=== PATIENT | male | born 1965 | race Caucasian/White ===

== ENCOUNTER → 2019-09-16 11:41 | Outpatient (CLI) | payer MEDICARE, SELFPAY ==
[2014-11-21 22:27] VITALS: BMI 24.4
--- NOTE | 2019-09-16 11:46 | RAD_ITS ---
STUDY: X-RAY CHEST REASON FOR EXAM: Male, 53 years old. SHORTNESS OF BREATH TECHNIQUE: Frontal and lateral views of the chest. COMPARISON: None. FINDINGS: The lungs are clear and expanded. There is no demonstrated pleural abnormality. Normal size heart. Normal mediastinum and con. Normal visualized pulmonary arteries. Normal visualized aortic arch and descending thoracic aorta. There are diffuse degenerative changes of the visualized thoracic spine. Partial compression fracture of T8. Normal visualized ribs, clavicles, and shoulders. There is no demonstrated abnormality of the visualized soft tissue structures of the upper abdomen. RAD/Chest PA and Lateral IMPRESSION: No acute chest disease. Electronically Signed: Everett De La Torre MD at 22:17 EST , Service support ,
== END ==
PROVIDERS: Referring Provider Nurse Practitioner; Visit Provider Nurse Practitioner
DX: R06.02 Shortness of breath (principal)
CPT/HCPCS: 71046

== ENCOUNTER → 2019-09-25 07:42 | Outpatient (CLI) | payer MEDICARE, SELFPAY ==
[2014-11-21 22:27] VITALS: BMI 24.4
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
--- NOTE | 2019-09-26 07:04 | PFT ---
INTRODUCTION: The patient is a 53-year-old male that presents for pulmonary function studies secondary to a diagnosis of shortness of breath. Bronchodilators were used during testing. INTERPRETATION: Forced expiration spirometry demonstrates the presence of a mild large airways obstructive ventilatory defect. There was no significant response to aerosolized bronchodilators, based upon strict ATS criteria. Spirograms are of good quality and do not plateau indicating slow emptying of the lungs. Body plethysmography was performed and reveals lung volumes to be within normal limits. Diffusing capacity by single breath CO is within normal limits at 92% of predicted. IMPRESSION: Irreversible mild large airways obstructive ventilatory defect with preserved lung volumes and diffusing capacity.
== END ==
PROVIDERS: PCP Nurse Practitioner; Referring Provider Nurse Practitioner; Visit Provider Nurse Practitioner
DX: S22.060A Wedge compression fracture of T7-T8 vertebra, initial encounter for closed fracture (principal); R06.02 Shortness of breath; R00.1 Bradycardia, unspecified
CPT/HCPCS: 77080; 93225; 93226; 94060; 94726; 94729

== ENCOUNTER → 2019-10-28 11:52 | Outpatient (CLI) | payer MEDICARE, SELFPAY ==
[2014-11-21 22:27] VITALS: BMI 24.4
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
== END ==
LOC: HPRAD 11:53
PROVIDERS: PCP Nurse Practitioner; Referring Provider Nurse Practitioner Family; Visit Provider Nurse Practitioner Family
DX: M46.96 Unspecified inflammatory spondylopathy, lumbar region (principal); M54.9 Dorsalgia, unspecified; M54.17 Radiculopathy, lumbosacral region
CPT/HCPCS: 72110

== ENCOUNTER → 2020-08-25 15:12 | Outpatient (CLI) | payer MEDICARE, SELFPAY ==
[2014-11-21 22:27] VITALS: BMI 24.4
--- NOTE | 2020-08-25 15:15 | RAD_ITS ---
STUDY: X-RAY - LEFT HAND REASON FOR EXAM: Male, 54 years old. left hand pain TECHNIQUE: 3 view(s) of the hand. COMPARISON: None. FINDINGS: He has an old mild dorsal impaction fracture deformity of the distal radius and a well corticated large ossicle at the tip of the ulnar styloid process. Degenerative arthrosis of the distal radioulnar joint. Normal visualized carpal bones. Normal carpal articulations There is degenerative arthrosis of the carpometacarpal (CMC) articulation of the thumb normal second through the fifth carpometacarpal joints Prior healed fracture of the distal fifth metacarpal resulting in mild shortening and dorsal bowing deformity. There is degenerative arthrosis of the metacarpophalangeal (MCP) joints. There is degenerative arthrosis of the interphalangeal joint of the thumb with articular joint space narrowing. Normal proximal and distal phalanges of the thumb. Minimal degenerative changes of the second through the fifth metacarpophalangeal joints. Mild degenerative narrowing of the interphalangeal joints. Normal phalanges of the second through fifth fingers. The soft tissue structures are unremarkable. RAD/Hand Min 3 Views IMPRESSION: Negative for acute fracture or dislocation. Old dorsal impaction fracture of the distal radius and an old fracture of the fifth metacarpal as described above. Degenerative arthrosis of the distal radioulnar joint. Mild degenerative arthrosis of the metacarpal phalangeal and interphalangeal joints diffusely. Electronically Signed: Fern Encinas MD at 10:33 EST , Service support ,
--- NOTE | 2020-08-25 15:15 | RAD_ITS ---
STUDY: X-RAY - LEFT SHOULDER REASON FOR EXAM: Male, 54 years old. left shoulder pain TECHNIQUE: 4 view(s) of the shoulder. COMPARISON: None. FINDINGS: There is moderate degenerative arthrosis of the glenohumeral articulation. Status post surgical removal of the distal clavicle bordering the AC joint. Normal acromion. Normal humeral head and visualized proximal humerus. The soft tissue structures are unremarkable. Negative for fracture. Normal visualized pulmonary apex. RAD/Shoulder min 2 Views IMPRESSION: Normally located glenohumeral joint with narrowing and marginal osteophytosis consistent with moderate degenerative arthrosis. Status post surgical removal of the distal clavicle bordering the AC joint. Negative for fracture, dislocation, osteolytic or blastic bone lesion. Electronically Signed: Fern Encinas MD at 10:29 EST , Service support ,
== END ==
PROVIDERS: PCP Nurse Practitioner; Referring Provider Nurse Practitioner; Visit Provider Nurse Practitioner
DX: M25.512 Pain in left shoulder (principal); M79.642 Pain in left hand
CPT/HCPCS: 73030; 73130

== ENCOUNTER → 2020-10-18 15:19 | Outpatient (CLI) | payer MEDICARE, SELFPAY ==
[2020-09-28 13:21] VITALS: BMI 32.5
--- NOTE | 2020-10-18 15:22 | RAD_ITS ---
STUDY: X-RAY - LUMBAR SPINE REASON FOR EXAM: Male, 54 years old. PAIN, OLD INJURIES, CONTINUED PAIN TECHNIQUE: 3 view(s) of the lumbar spine were obtained. COMPARISON: None FINDINGS: Normal lumbar lordosis. Mild levoscoliosis centered at L2/L3. 2 mm of retrolisthesis of L3 on L4. There is multilevel endplate spondylosis of the lumbar vertebrae. There is multi-level degenerative disc disease with multi-level disc space narrowing. The soft tissue structures are unremarkable. RAD/Lumbar Spine 2 or 3 Views IMPRESSION: Mild levoscoliosis with mild diffuse degenerative disc disease with 2 mm retrolisthesis of L3 on L4. Electronically Signed: Jaleel Yepez MD at 6:09 EST Tel , Service support ,
--- NOTE | 2020-10-18 15:22 | RAD_ITS ---
STUDY: X-RAY - SACRUM/COCCYX REASON FOR EXAM: Male, 54 years old. PAIN, OLD INJURIES, CONTINUED PAIN TECHNIQUE: 3 view(s) of the sacrum and coccyx were obtained. COMPARISON: None. FINDINGS: Normal bilateral sacroiliac joints. Normal visualized sacral ala and fused sacral bodies. Normal sacrococcygeal junction with a normal angulation. Normal coccygeal segments. There is a 1.7 cm x 1.4 cm rounded calcification in the central portion of the pelvis. This most likely represents a bladder calculus. Phleboliths are seen within the pelvis. RAD/Sacrum-Coccyx min 2 Views IMPRESSION: Findings suggestive of a bladder calculus. Electronically Signed: Moreno Lew MD at 8:25 EST , Service support ,
--- NOTE | 2020-10-18 15:22 | RAD_ITS ---
STUDY: X-RAY - PELVIS AND BILATERAL HIPS REASON FOR EXAM: Continued pelvic/hip pain, old injuries. TECHNIQUE: AP view of the pelvis.? 2 views of the right hip, and 2 views of the left hip were obtained. COMPARISON: None. FINDINGS: There is a calcification in the pelvis likely representing a urinary bladder calculus. Normal bilateral iliac wings, sacroiliac joints and visualized sacrum. Normal bilateral superior and inferior pubic rami. Normal pubic symphysis. Normal bilateral ischial tuberosities. There is moderate joint space narrowing of the right hip with subchondral cystic change of the right acetabulum and right femoral head. There is orthopedic hardware transfixing a healed left intertrochanteric fracture. Normal left acetabulum. There is mild joint space narrowing of the superior medial left hip joint. RAD/Hips B/L min 2 views w/ Pelvis IMPRESSION: Right hip arthrosis. Mild left hip arthrosis. Orthopedic hardware transfixing a healed left intertrochanteric fracture. Electronically Signed: Saúl Cleveland MD at 10:40 EST Tel , Service support ,
== END ==
LOC: RAD 15:21
PROVIDERS: PCP Nurse Practitioner; Referring Provider Anesthesiology Pain Medicine; Visit Provider Anesthesiology Pain Medicine
DX: M54.9 Dorsalgia, unspecified (principal)
CPT/HCPCS: 72100; 72220; 73521

== ENCOUNTER 2022-04-07 15:21 | Emergency (ER) | payer MEDICARE, SELFPAY ==
[2022-04-07 15:24] VITALS: BP 170/108; PULSE 80; RESP 18; TEMP 36.8; O2SAT 96; BMI 30.5
--- NOTE | 2022-04-07 16:11 | CT_ITS ---
STUDY: CT Abdomen And Pelvis W/O Contrast Injection 04/07/2022 4:56 PM REASON FOR EXAM: Male, 56 years old. Technologist Notes Pt reports he went to urgent care who sent him to ED this morning due inability to urinate over night, frequency this AM and bloody urine. Also reports RLQ abdominal pain. ABDOMINAL PAIN Kidney Stone hematuria TECHNIQUE: Transaxial images were obtained without oral contrast, and without intravenous contrast. Individualized dose optimization techniques were used for this CT. COMPARISON: None. FINDINGS: The visualized lung bases are unremarkable. The visualized portions of the heart are within normal limits. Unremarkable liver. Unremarkable gallbladder and extrahepatic biliary system. Unremarkable spleen. There is diffuse atrophy of the pancreas. Unremarkable bilateral adrenal glands. Non obstructive 2 mm right renal parenchymal stones. Non obstructive 2 mm left renal parenchymal stones. There are hypodensities in the right kidney. These are consistent for cysts. No follow up required. Unremarkable visualized stomach. Unremarkable small intestine. There are multiple colonic diverticula consistent with diverticulosis. There is non-visualization of the appendix. There are calcifications of the abdominal aorta. This is consistent for atherosclerotic disease. There is no abdominal aortic aneurysm. Unremarkable inferior vena cava. Subcentimeter mesenteric lymph nodes. Urinary bladder wall has wall thickening. This can be related to a partially contractile state. However, a cystitis is not excluded. Urinalysis should be performed in an effort to exclude cystitis. L4 vertebral body hemangioma. There is an umbilical hernia containing fat. There are diffuse degenerative changes of the visualized lumbar spine. There is metallic hardware noted in the left hip. CT/Abdomen/Pelvis without Cont IMPRESSION: (NOT LISTED IN ORDER OF SIGNIFICANCE) Urinary bladder wall has wall thickening. This can be related to a partially contractile state. However, a cystitis is not excluded. Urinalysis should be performed in an effort to exclude cystitis. s There are multiple colonic diverticula consistent with diverticulosis. Other findings as above. Electronically Signed: Robby Nicole MD at 17:16 EDT ,
--- NOTE | 2022-04-07 16:12 | EX.ED.DYSGE1 ---
HPI History of Present Illness Chief Complaint: Complaint Informant: patient Narrative Narrative: -year-old male history of chronic pain presenting to the emergency room with hematuria and abdominal/flank pain. Patient states upon waking this morning he was only able to void a small amount of urine and noticed that it was bloody and brown. He drank a lot of water and eventually his urine cleared. He went to urgent care and was advised to come to emergency. He denies any known renal issues or history of kidney stones. Former smoker. He is not on any blood thinners and denies any known trauma. [facility] Medical History (Updated 04/07/22 @ 17:[address] Douglas Presley DO) Arthritis Shoulder pain SOB (shortness of breath) Home Medications cyclobenzaprine 5 mg tablet 1 ea PO TID 09/28/20 [History Last Taken Unknown] gabapentin 600 mg tablet 1,200 mg PO BID 09/28/20 [History Last Taken Unknown] methylphenidate HCl 20 mg tablet 20 mg PO BID 09/28/20 [History Last Taken Unknown] sulfamethoxazole 800 mg-trimethoprim 160 mg tablet 1 tab PO BID #14 TABLETS 04/07/22 [Rx Last Taken Unknown] Allergy/AdvReac Type Severity Reaction Status Date / Time No Known Allergies Allergy Verified 04/07/22 15:24 Family History Other Cancer Surgical History (Updated 04/07/22 @ 16:37 by Romina Carroll) H/O shoulder surgery Hx of bilateral hip replacements Social History (Updated 04/07/22 @ 16:[address] Douglas Presley DO) Smoking Status: Current every day smoker tobacco type: cigarettes substance use type: marijuana ROS ROS ED Constitutional Constitutional ED: Denies chills or weight loss Eyes Eyes: Denies change in vision or diplopia ENT ENT ED: Denies ear pain, rhinorrhea or sore throat Cardiovascular Cardiovascular: Denies chest pain, orthopnea, palpitations or racing heartbeat Respiratory/Chest Respiratory/Chest: Denies cough, dyspnea or orthopnea Gastrointestinal Gastrointestinal: Reports abdominal pain; Denies diarrhea, nausea or vomiting Genitourinary Genitourinary ED: Reports dysuria, hematuria and urinary frequency Musculoskeletal Musculoskeletal: Reports back pain; Denies arthralgias or myalgias Integumentary Denies abscess or rash Neurologic Neurologic: Denies headache(s) or weakness Psychiatric Psychiatric: Denies anxiety, depression, suicidal ideation or suicidal thoughts Endocrine Endocrinology: Denies polydipsia, polyphagia or polyuria Allergic/Immunologic Allergic/Immunologic ED: Denies mouth swelling, tongue swelling or urticaria EXAM Physical Exam Const Vital Signs: 04/07/22 15:24 Temperature 98.2 F Temperature Source Temporal Pulse Rate 80 Respiratory Rate 18 Blood Pressure 170/108 H Blood Pressure Mean 128 Pulse Ox 96 Oxygen Delivery Method Room Air Positive well nourished and well developed General Appearance ED: well developed HEENT Reports normocephalic, head/scalp atraumatic and moist mucous membranes Eyes PERRL and EOMs intact bilaterally Neck no lymphadenopathy, supple and no JVD Resp normal respiratory effort and clear to auscultation bilaterally Cardio regular rate, regular rhythm and no murmurs GI GI Narrative: Diffuse abdominal tenderness to palpation. Auscultation: normoactive bowel sounds Palpation: soft Back/Spine normal ROM General Back: CVA tenderness right Extremity normal to inspection General Extremety ED: Negative for edema General Extremity: Negative for edema Neuro oriented x3 and CN's II-XII intact bilaterally Sensorium / Orientation: alert Motor Exam: strength 5/5 throughout Psych mental status grossly normal Mood & Affect: Negative for depressed or tearful Skin no rashes or lesions noted and no wounds MDM MDM MDM Narrative Medical decision making narrative: White count is elevated 13.6 hemoglobin 12.4. Platelet count normal at 214. Creatinine normal 0.99. Urinalysis 1+ bacteria 50-100 white cells 5-10 red blood cells positive leukocyte Estrace. This will be sent for culture. Patient will be started on Bactrim. Encouraged to continue to drink fluids. I asked him to follow-up with urology. Lab Data Attestation: I reviewed the patient's lab results. Labs: Laboratory Results - last 24 hr 04/07/22 04/07/22 04/07/22 15:00 16:20 16:20 WBC 13.6 H RBC 3.90 L Hgb 12.4 L Hct 35.5 L MCV 91.0 MCH 31.8 MCHC 34.9 RDW Std Deviation 41.9 RDW Coeff of Erik 12.8 Plt Count 214 MPV 9.4 Immature Gran % (Auto) 0.300 Neut % (Auto) 83.4 H Lymph % (Auto) 8.0 L Petroleum % (Auto) 7.2 Eos % (Auto) 0.7 Baso % (Auto) 0.4 Absolute Neuts (auto) 11.3 H Absolute Lymphs (auto) 1.08 Nucleated RBC % 0 Sodium 136 Potassium 3.9 Chloride 105 Carbon Dioxide 28.0 Anion Gap 3 L BUN 10 Creatinine 0.99 Estim Creat Clear Calc 86.62 Est GFR (MDRD) Af Amer 99 Est GFR (MDRD) Non-Af 82 BUN/Creatinine Ratio 10.1 Glucose 110 H Calcium 9.1 Total Bilirubin 1.60 H AST 16 ALT 27 Alkaline Phosphatase 82 Total Protein 7.0 Albumin 3.8 Globulin 3.2 Albumin/Globulin Ratio 1.2 Urine Color Straw Urine Clarity Sl. Cloudy Urine pH 7.0 Ur Specific [place] 1.005 Urine Protein 30 H Urine Glucose (UA) Normal Urine Ketones Negative Urine Occult Blood 250 H Urine Nitrite Negative Urine Bilirubin Negative Urine Urobilinogen Normal Ur Leukocyte Esterase 500 H Urine RBC 5-10 SEEN Urine WBC 50-100 SEEN Ur Squamous Epith Cells 0-5 SEEN Urine Bacteria 1+ Urine Mucus 0 SEEN Radiography Diagnostic Testing: Clinical Impression(s) from Imaging Studies Abdomen/Pelvis CT 04/07/22 16:11 IMPRESSION: (NOT LISTED IN ORDER OF SIGNIFICANCE) Urinary bladder wall has wall thickening. This can be related to a partially contractile state. However, a cystitis is not excluded. Urinalysis should be performed in an effort to exclude cystitis. s There are multiple colonic diverticula consistent with diverticulosis. Other findings as above. Electronically Signed: Robby Nicole MD at 17:16 EDT , Discharge Plan Triage Chief Complaint: Complaint ED Provider: Douglas Presley Dx/Rx/DC Orders Clinical Impression: Hematuria, Acute pyelonephritis Instructions: ED Pyelonephritis, Male (Adult) Prescriptions: New sulfamethoxazole-trimethoprim [sulfamethoxazole-trimethoprim] 800-160 mg tablet 1 tab PO BID Qty: 14 0RF No Action gabapentin 600 mg tablet 1,200 mg PO BID Label Comments: TAKE 1 TABLET BY MOUTH THREE TIMES DAILY cyclobenzaprine 5 mg tablet 1 ea PO TID Label Comments: TAKE 1 TO 2 TABLETS BY MOUTH EVERY 8 HOURS NEEDED for muscle relaxation. methylphenidate HCl 20 mg tablet 20 mg PO BID Label Comments: TAKE 1 TABLET BY MOUTH TWICE DAILY Primary Care Provider: Lori Paez Referrals: Calos Beauchamp MD [Med Staff - Active Staff] - 1-2 Weeks Lori Paez, [employer] OPERATOR-C [Primary Care Provider] - Disposition Disposition: Home, Self Care
[2022-04-07] MEDS: Ketorolac 30 MG/ML Syringe IV (16:29)
[2022-04-07] MEDS: Ondansetron 4 MG/2 ML Vial IV (16:29)
[2022-04-07 16:37] LABS: Absolute Lymphocyte Count 1.08 X10^3/uL (0.83-4.51); Absolute Neutrophil Count 11.3 X10^3/uL (2.0-7.7); Basophil# 0.06 X10^3/uL; Basophil% 0.4 % (0-1); Eosinophils% 0.7 % (0-5); Hematocrit 35.5 % (40-54); Hemoglobin 12.4 g/dL (13.0-16.5); Lymphocyte # 1.08 X10^3/ul (0.83-4.51); Mean Corp Hgb Conc 34.9 g/dL (32-36); Mean Corpuscular Hgb 31.8 pg (27.0-32.0); Mean Platelet Vol. 9.4 fl (6.2-12.0); Monocyte# 0.98 X10^3/uL; Monocyte% 7.2 % (0-10); NRBC Flagged by Analyzer 0 % (0-5); Neutrophil % 83.4 % (47-70); Platelet Count 214 K/mm3 (150-450); RBC Distribution Width CV 12.8 % (11.6-14.6); RBC Distribution Width SD 41.9 fl (35.1-43.9); White Blood Count 13.6 K/mm3 (4.4-11.0)
[2022-04-07 16:53] LABS: ALB/GLOB Ratio 1.2 RATIO (0.9-2.4); AST(SGOT) 16 U/L (15-37); Alanine Aminotransfer ALT/SGPT 27 U/L (16-61); Albumin, Serum 3.8 g/dL (3.2-5.0); Alkaline Phosphatase 82 U/L (45-117); Anion Gap 3 (5-15); BUN 10 mg/dL (7-18); BUN/Creat Ratio 10.1 RATIO (10-20); Calcium,Total 9.1 mg/dL (8.5-10.1); Chloride 105 mmol/L (98-107); Creatinine, Serum 0.99 mg/dL (0.70-1.30); EST Glomerular Filtration Rate 82 mL/min (>60); Est Glom Filt Rate - Afr Amer 99 mL/min (>60); Estimated Creatinine Clearance 86.62 ml/min; Globulin 3.2 g/dL (2.2-4.2); Glucose 110 mg/dL (74-106); Potassium 3.9 mmol/L (3.5-5.1); Sodium Level 136 mmol/L (136-145)
[2022-04-07 17:03] LABS: Mucous, Urine 0 SEEN /hpf (<or=2+)
[2022-04-07 17:26] LABS: Color, Urine Straw (Yellow); Glucose, Dipstick Normal (Normal); Ketone-Dipstick Negative (Negative); Leukocyte Esterase-Dipstick 500 /ul (Negative); Nitrite-Dipstick Negative (Negative); Occult Blood-Urine 250 /ul (Negative); Protein-Dipstick 30 mg/dl (Negative); Specific Gravity, Urine 1.005 (1.002-1.030); Urine Bilirubin Dipstick Negative (Negative); Urine Clarity Sl. Cloudy (Clear); Urine Urobilinogen Normal (Normal)
[2022-04-07 17:42] LABS: Red Blood Cells-Urine 5-10 SEEN /hpf (0-5); Squamous Epithelial Cells - UA 0-5 SEEN /hpf (0-5); White Blood Cells 50-100 SEEN /hpf (0-5)
[2022-04-07 17:43] LABS: Bacteria 1+ /hpf (None Seen)
== END 2022-04-07 18:05 | disposition home or self-care (01) ==
PROVIDERS: Emergency Provider Emergency Medicine; PCP Nurse Practitioner Family; Visit Provider Emergency Medicine
DX: N10 Acute pyelonephritis (principal); F31.60 Bipolar disorder, current episode mixed, unspecified; F17.210 Nicotine dependence, cigarettes, uncomplicated; R31.9 Hematuria, unspecified; N39.0 Urinary tract infection, site not specified; I10 Essential (primary) hypertension; E55.9 Vitamin D deficiency, unspecified; M62.838 Other muscle spasm
CPT/HCPCS: 36415; 74176; 80053; 80061; 81001; 82248; 82306; 83735; 84100; 84443; 84550; 85025; 85652; 86038; 86140; 86200; 86235; 86431; 87086; 87088; 87186; 96374; 96375; 99283; A4216; J2405

== ENCOUNTER → 2022-04-07 | Outpatient (CLI) | payer MEDICARE, SELFPAY ==
[2022-04-07 15:05] LABS: Erythrocyte Sedimentation Rate 14 mm/hr (0-20)
[2022-04-07 15:09] LABS: Absolute Lymphocyte Count 1.23 X10^3/uL (0.83-4.51); Absolute Neutrophil Count 10.1 X10^3/uL (2.0-7.7); Basophil# 0.05 X10^3/uL; Basophil% 0.4 % (0-1); Eosinophil# 0.09 X10^3/uL; Eosinophils% 0.7 % (0-5); Hematocrit 35.2 % (40-54); Lymphocyte # 1.23 X10^3/ul (0.83-4.51); Mean Corp Hgb Conc 34.1 g/dL (32-36); Mean Corpuscular Hgb 30.8 pg (27.0-32.0); Mean Corpuscular Volume 90.5 fL (80-94); Mean Platelet Vol. 10.1 fl (6.2-12.0); Monocyte# 0.78 X10^3/uL; Monocyte% 6.4 % (0-10); NRBC Flagged by Analyzer 0 % (0-5); Neutrophil # 10.06 X10^3/uL (2.7-7.7); Platelet Count 221 K/mm3 (150-450); RBC Distribution Width CV 12.8 % (11.6-14.6); RBC Distribution Width SD 41.7 fl (35.1-43.9); Red Blood Count 3.89 M/mm3 (4.6-6.2); White Blood Count 12.3 K/mm3 (4.4-11.0)
[2022-04-07 15:13] LABS: Mucous, Urine 0 SEEN /hpf (<or=2+)
[2022-04-07 15:21] LABS: Color, Urine Straw (Yellow); Glucose, Dipstick Normal (Normal); Ketone-Dipstick Negative (Negative); Leukocyte Esterase-Dipstick 500 /ul (Negative); Nitrite-Dipstick Negative (Negative); Occult Blood-Urine 250 /ul (Negative); Protein-Dipstick 30 mg/dl (Negative); Specific Gravity, Urine 1.005 (1.002-1.030); Urine Bilirubin Dipstick Negative (Negative); Urine Clarity Cloudy (Clear); Urine Urobilinogen Normal (Normal)
[2022-04-07 15:27] LABS: Vitamin D,25 Hydroxy 136.4 ng/mL
[2022-04-07 15:35] LABS: ALB/GLOB Ratio 1.2 RATIO (0.9-2.4); AST(SGOT) 15 U/L (15-37); Alanine Aminotransfer ALT/SGPT 27 U/L (16-61); Albumin, Serum 3.8 g/dL (3.2-5.0); Alkaline Phosphatase 80 U/L (45-117); Anion Gap 5 (5-15); BUN 11 mg/dL (7-18); BUN/Creat Ratio 11.6 RATIO (10-20); Bilirubin, Direct 0.32 mg/dL (0.00-0.30); Calcium,Total 8.8 mg/dL (8.5-10.1); Chloride 104 mmol/L (98-107); Cholesterol 144 mg/dL (200); Creatinine, Serum 0.95 mg/dL (0.70-1.30); EST Glomerular Filtration Rate 87 mL/min (>60); Est Glom Filt Rate - Afr Amer 105 mL/min (>60); Globulin 3.2 g/dL (2.2-4.2); Glucose 103 mg/dL (74-106); High Density Lipoprotein 45 mg/dL; Magnesium 1.9 mg/dL (1.6-2.6); Phosphorus 2.4 mg/dL (2.5-4.9); Potassium 3.6 mmol/L (3.5-5.1); Rheumatoid Factor < 10.0 IU/mL (<15); Sodium Level 135 mmol/L (136-145); Thyroid Stim Hormone (TSH) 0.29 uIU/mL (0.358-3.74); Triglycerides 75 mg/dL; Uric Acid 6.2 mg/dL (3.5-7.2); Very Low Density Lipoprotein 15 mg/dL (5-40)
[2022-04-07 16:20] LABS: Bacteria 2+ /hpf (None Seen); Red Blood Cells-Urine 10-25 SEEN /hpf (0-5); Squamous Epithelial Cells - UA 0-5 SEEN /hpf (0-5); White Blood Cells 50-100 SEEN /hpf (0-5)
[2022-04-10 15:08] LABS: RNP Ab <0.2 AI (0.0-0.9); Smith Ab <0.2 AI (0.0-0.9)
[2022-04-10 16:55] LABS: ANTINUCLEAR ANTIBODIES DIRECT Negative (Negative)
[2022-04-19 12:31] LABS: CCP IgG Antibodies 5 units (0-19)
== END | disposition home or self-care (01) ==
PROVIDERS: Nurse Practitioner Family; PCP Nurse Practitioner Family; Referring Provider Nurse Practitioner Family; Visit Provider Nurse Practitioner Family
DX: N39.0 Urinary tract infection, site not specified (principal); F31.60 Bipolar disorder, current episode mixed, unspecified; I10 Essential (primary) hypertension; E55.9 Vitamin D deficiency, unspecified; M62.838 Other muscle spasm
CPT/HCPCS: 36415; 80053; 80061; 81001; 82248; 82306; 83735; 84100; 84443; 84550; 85025; 85652; 86038; 86140; 86200; 86235; 86431; 87086; 87088; 87186

== ENCOUNTER 2022-04-10 11:07 | Inpatient (IN) | payer MEDICARE, SELFPAY ==
[2022-04-10] VITALS (14 sets, daily range): BP systolic 121–144; BP diastolic 67–94; PULSE 71–96; RESP 12–20; TEMP 36.2–39.2; O2SAT 90–97; BMI 29.9
--- NOTE | 2022-04-10 12:11 | EKG12_ITS ---
Test Reason : fall Blood Pressure : / mmHG Vent. Rate : 075 BPM Atrial Rate : 075 BPM P-R Int : 170 ms QRS Dur : 112 ms QT Int : 378 ms P-R-T Axes : 060 -25 046 degrees QTc Int : 422 ms Normal sinus rhythm Incomplete right bundle branch block Borderline ECG Confirmed by DENIZ LAM, AGUSTÍN ([id number]), social media editor NICO BROWN ([id number]) on 04/11/2022 9:27:49 AM Referred By: Confirmed By:AGUSTÍN GUAMAN MD
--- NOTE | 2022-04-10 12:11 | CT_ITS ---
STUDY: CT BRAIN WITHOUT CONTRAST REASON FOR EXAM: Male, 56 years old. Fall, head injury RADIATION DOSAGE (If Supplied By Facility): CTDIvol = ( 44.99 ) mGy, DLP = ( 897.35 ) mGycm TECHNIQUE: Transaxial CT imaging of the brain was performed without administration of intravenous contrast material. Individualized dose optimization techniques were used for this CT. COMPARISON: No relevant priors. FINDINGS: Normal soft tissue structures. Normal calvarium. Normal size ventricles and extra-axial spaces for the patient''s age. Normal white matter tracts of the cerebral hemispheres. Normal basal ganglia and thalami. Normal brainstem. Normal cerebellum. There is no intracranial hemorrhage. There are no findings of an acute ischemic infarction. Normal visualized paranasal sinuses. CT/Brain/Head without Contrast IMPRESSION: Normal unenhanced CT scan of the brain. Electronically Signed: Moreno Lew MD at 13:18 EDT ,
--- NOTE | 2022-04-10 12:11 | RAD_ITS ---
STUDY: X-RAY CHEST REASON FOR EXAM: Male, 56 years old. Fatigue, sweats TECHNIQUE: PA and lateral views of the chest. COMPARISON: Comparison is made with prior study dated 03/16/2020. FINDINGS: EKG electrodes are seen. There is hyperinflation of the lungs consistent with chronic obstructive lung disease (COPD). There is no demonstrated pleural abnormality. Normal size heart. Normal mediastinum and con. Normal visualized pulmonary arteries. There is atherosclerotic tortuosity of the aortic arch and descending thoracic aorta. There are degenerative changes of the visualized thoracic spine. Normal visualized ribs, clavicles, and shoulders. There is no demonstrated abnormality of the visualized soft tissue structures of the upper abdomen. RAD/Chest PA and Lateral IMPRESSION: Hyperinflation. The lungs are clear. Electronically Signed: Moreno Lew MD at 13:25 EDT ,
--- NOTE | 2022-04-10 12:13 | EDS_ITS ---
HPI History of Present Illness Chief Complaint: Fall Informant: patient Narrative Narrative: Patient is a 56 year old male with history of chronic pain and RA on gabapentin at baseline presenting from home with multiple complaints. Patient was seen in our ER on 04/07/2022 (3 days ago) for blood in his urine. He was diagnosed with pyelonephritis and started on Bactrim. He states that he is not feeling better and has been taking his antibiotics as prescribed. He notes that when he got home that evening he was bringing food inside when he slipped and fell backwards on his porch. He hit his head on the door as well as when he landed on the floor. Denies any loss of consciousness. Has been having headaches since. Has continued to have high fevers, nausea and vomiting and decreased appetite. Has continued to have left-sided abdominal and low back pain. Has taken Advil at home with minimal relief of the symptoms. Denies any change in his bowel habits. Has not had any hematuria for the past 2 days. No other complaints at this time. [facility] Medical History Arthritis Shoulder pain SOB (shortness of breath) Home Medications cyclobenzaprine 5 mg tablet 1 ea PO TID back 09/28/20 [History Last Taken 04/07/22] gabapentin 600 mg tablet 1,200 mg PO BID back 09/28/20 [History Last Taken 04/09/22] methylphenidate HCl 20 mg tablet 20 mg PO BID adhd 09/28/20 [History Last Taken 04/10/22] ergocalciferol (vitamin D2) 1,250 mcg (50,000 unit) capsule 50,000 unit PO QWEEK supplement 04/10/22 [History Last Taken 04/08/22] sildenafil 50 mg tablet 50 mg PO DAILY PRN Erectile Dysfunction 04/10/22 [History Last Taken Unknown] Allergy/AdvReac Type Severity Reaction Status Date / Time No Known Allergies Allergy Verified 04/10/22 11:25 Family History Other Cancer Surgical History H/O shoulder surgery Hx of bilateral hip replacements Social History Smoking Status: Current every day smoker tobacco type: cigarettes substance use type: marijuana ROS ROS ED Constitutional Constitutional ED: Reports chills, fever(s) and sweats Eyes Eyes: Reports other Details: Photophobia ; Denies change in vision or diplopia ENT ENT ED: Denies rhinorrhea or sore throat Cardiovascular Cardiovascular: Denies chest pain or palpitations Respiratory/Chest Respiratory/Chest: Reports dyspnea; Denies cough Gastrointestinal Gastrointestinal: Reports abdominal pain, nausea and vomiting; Denies constipation or diarrhea Genitourinary Genitourinary ED: Reports hematuria; Denies dysuria or urinary frequency Musculoskeletal Musculoskeletal: Reports back pain and myalgias; Denies arthralgias or neck pain Integumentary Denies rash Neurologic Neurologic: Reports headache(s); Denies paresthesias or weakness Psychiatric Psychiatric: Denies anxiety Hematologic/Lymphatic Hematologic/Lymphatic: Denies easy bleeding or easy bruising EXAM Physical Exam Const Vital Signs: 04/10/22 11:08 04/10/22 11:29 04/10/22 11:38 Temperature 97.2 F L 98.9 F 98.9 F Temperature Source Temporal Oral Pulse Rate 94 84 Respiratory Rate 17 16 Respiratory Effort Normal Non-Labored Respiratory Depth Normal Respiratory Pattern Normal Blood Pressure 127/90 H 142/94 H Blood Pressure Mean 102 110 Pulse Ox 94 94 94 Oxygen Delivery Method Room Air Room Air Room Air 04/10/22 12:27 04/10/22 13:22 04/10/22 13:22 Temperature 99.0 F 99.6 F H 99.6 F H Temperature Source Oral Oral Oral Pulse Rate 77 71 71 Respiratory Rate 16 20 H 20 H Respiratory Effort Respiratory Depth Respiratory Pattern Blood Pressure 130/87 H 129/83 H 129/83 H Blood Pressure Mean 101 98 98 Pulse Ox 93 93 93 Oxygen Delivery Method Room Air Room Air Room Air 04/10/22 14:10 04/10/22 14:45 04/10/22 14:46 Temperature 98.8 F 98.8 F Temperature Source Oral Oral Pulse Rate 72 71 71 Respiratory Rate 17 14 12 Respiratory Effort Respiratory Depth Respiratory Pattern Blood Pressure 121/67 H 122/78 H 122/78 H Blood Pressure Mean 85 92 92 Pulse Ox 95 94 95 Oxygen Delivery Method Room Air Room Air Room Air Positive well nourished and well developed General Appearance ED: well developed and NAD HEENT Reports moist mucous membranes Eyes PERRL and EOMs intact bilaterally Neck supple and no JVD Neck Narrative: Normal range of motion. No midline tenderness. Chest Wall inspection of chest normal and palpation of chest normal Resp normal respiratory effort and clear to auscultation bilaterally Cardio regular rate, regular rhythm and no murmurs GI non-distended Inspection: Negative for abdominal distention Palpation: soft and tender RLQ and periumbilical Back/Spine Back/Spine Narrative: Right lower back tenderness to palpation General Back: CVA tenderness right Thoracic Spine / Upper Back: paraspinal muscle tenderness Lumbar Spine / Lower Back: Negative for lumbar spinal tenderness Neuro oriented x3, CN's II-XII intact bilaterally and no sensory deficits noted Motor Exam: strength 5/5 throughout; Negative for general weakness Psych mental status grossly normal Mood & Affect: anxious Skin no rashes or lesions noted and no wounds MDM MDM MDM Narrative Medical decision making narrative: Patient evaluated for worsening abdominal pain in the setting of a recent diagnosis of UTI. Patient has been on a couple days of Bactrim does not like he is improving. He is having lower abdominal pain and back pain. He did have a CT of his abdomen pelvis which was reviewed from his last ER visit which showed biases with cystitis but otherwise normal. Patient has a persistent leukocytosis, and acute elevation of his creatinine. He was 0.993 days ago and today is 1.48. Urinalysis continues to show signs of infection. Urine culture reviewed from 3 days ago shows that the culture was positive for E. coli that is resistant to Bactrim which is what he was on. Patient is given IV Rocephin the emergency room. Given his worsening symptoms, nausea, vomiting and now NORIS he will be admitted for IV antibiotics and IV fluids. Patient is agreeable this plan of care. Patient is given a dose of morphine for his pain in the emergency room. Work-up to look for other signs of infection also performed which was unremarkable. Lab Data Attestation: I reviewed the patient's lab results. Labs: Laboratory Results - last 24 hr 04/10/22 04/10/22 04/10/22 12:20 12:20 13:15 WBC 13.7 H RBC 4.25 L Hgb 13.1 Hct 38.6 L MCV 90.8 MCH 30.8 MCHC 33.9 RDW Std Deviation 41.1 RDW Coeff of Erik 12.5 Plt Count 231 MPV 9.6 Immature Gran % (Auto) 0.500 Neut % (Auto) 86.3 H Lymph % (Auto) 4.0 L [place] % (Auto) 8.7 Eos % (Auto) 0.1 Baso % (Auto) 0.4 Absolute Neuts (auto) 11.8 H Absolute Lymphs (auto) 0.55 L Nucleated RBC % 0 Platelet Estimate ADEQUATE RBC Morphology NORM C+C Sodium 133 L Potassium 4.3 Chloride 100 Carbon Dioxide 28.0 Anion Gap 5 BUN 14 Creatinine 1.48 H Estim Creat Clear Calc 57.94 Est GFR (MDRD) Af Amer 63 Est GFR (MDRD) Non-Af 52 L BUN/Creatinine Ratio 9.5 L Glucose 120 H Calcium 9.0 Total Bilirubin 1.00 AST 15 ALT 29 Alkaline Phosphatase 162 H Total Protein 7.4 Albumin 3.5 Globulin 3.9 Albumin/Globulin Ratio 0.9 Urine Color Yellow Urine Clarity Sl. Cloudy Urine pH 6.0 Ur Specific [place] 1.010 Urine Protein 100 H Urine Glucose (UA) Normal Urine Ketones Negative Urine Occult Blood 150 H Urine Nitrite Positive H Urine Bilirubin Negative Urine Urobilinogen Normal Ur Leukocyte Esterase 500 H Urine RBC 10-25 SEEN Urine WBC 25-50 SEEN Ur Squamous Epith Cells 0 SEEN Urine Bacteria 1+ Urine Mucus 0 SEEN Radiography Chest X-Ray - ED: 1 View, Read by ED Physician, Read by Radiologist and No Acute Disease Diagnostic Testing: Clinical Impression(s) from Imaging Studies Brain CT 04/10/22 12:11 IMPRESSION: Normal unenhanced CT scan of the brain. Electronically Signed: Moreno Lew MD at 13:18 EDT , Chest X-Ray 04/10/22 12:11 IMPRESSION: Hyperinflation. The lungs are clear. Electronically Signed: Moreno Lew MD at 13:25 EDT , Rhythm Strip Rhythm Strip: Sinus Rhythm Rate: 75 Ectopy: None EKG Initial EKG: Attestation: I personally reviewed and interpreted this EKG as follows: Interpretation: Sinus Rhythm Comments: Normal sinus rhythm at a rate of 75 Normal axis Normal intervals Incomplete right bundle branch block Normal ST segments Discharge Plan Dx/Rx/DC Orders Clinical Impression: Acute pyelonephritis, Hematuria, Right lateral abdominal pain, Right low back pain, NORIS (acute kidney injury), Failure of outpatient treatment Disposition Disposition: Acute Care [facility]
[2022-04-10] MEDS: 0.9% Normal Saline 1,000 ML 1000 ML IV (12:28)
[2022-04-10] MEDS: Ketorolac 15 MG/ML Vial IV (12:31)
[2022-04-10 12:34] LABS: Absolute Lymphocyte Count 0.55 X10^3/uL (0.83-4.51); Absolute Neutrophil Count 11.8 X10^3/uL (2.0-7.7); Basophil# 0.05 X10^3/uL; Basophil% 0.4 % (0-1); Eosinophil# 0.02 X10^3/uL; Eosinophils% 0.1 % (0-5); Hematocrit 38.6 % (40-54); Hemoglobin 13.1 g/dL (13.0-16.5); Lymphocyte # 0.55 X10^3/ul (0.83-4.51); Mean Corp Hgb Conc 33.9 g/dL (32-36); Mean Corpuscular Hgb 30.8 pg (27.0-32.0); Mean Corpuscular Volume 90.8 fL (80-94); Mean Platelet Vol. 9.6 fl (6.2-12.0); Monocyte# 1.19 X10^3/uL; Monocyte% 8.7 % (0-10); NRBC Flagged by Analyzer 0 % (0-5); Neutrophil # 11.77 X10^3/uL (2.7-7.7); Neutrophil % 86.3 % (47-70); POSITIVE DIFFERENTIAL YES; Platelet Count 231 K/mm3 (150-450); RBC Distribution Width CV 12.5 % (11.6-14.6); RBC Distribution Width SD 41.1 fl (35.1-43.9); Red Blood Count 4.25 M/mm3 (4.6-6.2); White Blood Count 13.7 K/mm3 (4.4-11.0)
[2022-04-10] MEDS: Ondansetron 4 MG/2 ML Vial IV ×2 (12:34→17:51)
[2022-04-10 12:36] LABS: Differential Indicated SCAN CRITERIA MET
[2022-04-10] MEDS: Ceftriaxone 1 GM/50 ML BAG IV (12:45)
[2022-04-10 12:50] LABS: ALB/GLOB Ratio 0.9 RATIO (0.9-2.4); AST(SGOT) 15 U/L (15-37); Alanine Aminotransfer ALT/SGPT 29 U/L (16-61); Albumin, Serum 3.5 g/dL (3.2-5.0); Alkaline Phosphatase 162 U/L (45-117); Anion Gap 5 (5-15); BUN 14 mg/dL (7-18); BUN/Creat Ratio 9.5 RATIO (10-20); Chloride 100 mmol/L (98-107); Creatinine, Serum 1.48 mg/dL (0.70-1.30); EST Glomerular Filtration Rate 52 mL/min (>60); Est Glom Filt Rate - Afr Amer 63 mL/min (>60); Estimated Creatinine Clearance 57.94 ml/min; Globulin 3.9 g/dL (2.2-4.2); Glucose 120 mg/dL (74-106); Potassium 4.3 mmol/L (3.5-5.1); Protein, Total 7.4 g/dL (6.4-8.2); Sodium Level 133 mmol/L (136-145)
[2022-04-10 12:53] LABS: Platelet Estimate ADEQUATE (ADEQ); Red Cell Morphology NORM C+C NORMAL (NORM C&C)
[2022-04-10 14:07] LABS: Mucous, Urine 0 SEEN /hpf (<or=2+); Squamous Epithelial Cells - UA 0 SEEN /hpf (0-5)
[2022-04-10 14:09] LABS: Color, Urine Yellow (Yellow); Glucose, Dipstick Normal (Normal); Ketone-Dipstick Negative (Negative); Leukocyte Esterase-Dipstick 500 /ul (Negative); Nitrite-Dipstick Positive (Negative); Occult Blood-Urine 150 /ul (Negative); Protein-Dipstick 100 mg/dl (Negative); Urine Bilirubin Dipstick Negative (Negative); Urine Clarity Sl. Cloudy (Clear); Urine Urobilinogen Normal (Normal)
[2022-04-10 14:18] LABS: Bacteria 1+ /hpf (None Seen); Red Blood Cells-Urine 10-25 SEEN /hpf (0-5); White Blood Cells 25-50 SEEN /hpf (0-5)
--- NOTE | 2022-04-10 14:31 | HP.PCM.HOS_ITS ---
HPI - General General Date of Admission: 04/10/22 Date of Service: 04/10/22 Chief Complaint: Recent Pyelonephritis Dx, failure outpatient abx therapy, fall. HPI Narrative The patient is a 56 y/o M w/ PMHx: Overweight, Tobacco use, Chronic cannabis usage, Chronic pain syndrome, Rheumatoid arthritis with recent ED evaluation 04/07/22 secondary to hematuria, left sided flank pain, fatigue and malaise at that time diagnosed with pyelonephritis and started on bacrim with discharge to home who now re-presents to the [facility] ED on 04/10/22 with history of minimal improvement despite abx therapy with peristent fevers, nauesa, meesis, decreased appetite, left sided flank and lumbac back discomfort with unfortunately concurrent fall prior to presentation, noted to have tripped and fallen backwards from standing on his porch, hitting his head on the door and eventually landing on the floor with no LOC but ongoing headache since prompting evaluation. He notes hematuria however has resolved. Work-up in the ED included T-max 99.6, heart rate 94, BP 127/90, respiratory rate 17, 94 to 95% on room air, CBC with WC 13.7, hemoglobin 13.1, platelet 231 with left shift and lymphopenia, CMP with sodium 133, BUN/creatinine 14/1.48, glucose 120, alk phos 162 otherwise [place] profile not marked appearing, urinalysis with specific gravity 1.010 noted to be cloudy, protein 100, occult blood 150, positive nitrite, 500 leukocyte esterase, urine RBC 10-25, urine WBCs 25-50 with 1+ urine bacteria, rapid COVID antigen testing negative in the ED, chest x-ray with no acute cardiopulmonary findings, CT of the brain with no acute intracranial findings, blood culture x2 pending per ED. In the ED patient ministered Zofran, morphine 4 mg IV x1, Toradol 15 mg IV x1, Rocephin as well as normal saline bolus and maintenance IV fluids. From review of records 04/07/2022 CT A/P was performed with at that time noted urinary wall thickening with multiple colonic diverticula with low cyst with no other acute findings and no evidence of any significant nephrolithiasis causing obstructive pattern. [facility] Medical History (Updated 04/10/22 @ 20:[address] Fiona Ibarra MD) ADHD Cannabis use disorder COPD (chronic obstructive pulmonary disease) Former tobacco use Rheumatoid arthritis Home Medications cyclobenzaprine 5 mg tablet 1 ea PO TID back 09/28/20 [History Last Taken 04/07/22] gabapentin 600 mg tablet 1,200 mg PO BID back 09/28/20 [History Last Taken 04/09/22] methylphenidate HCl 20 mg tablet 20 mg PO BID adhd 09/28/20 [History Last Taken 04/10/22] ergocalciferol (vitamin D2) 1,250 mcg (50,000 unit) capsule 50,000 unit PO QWEEK supplement 04/10/22 [History Last Taken 04/08/22] sildenafil 50 mg tablet 50 mg PO DAILY PRN Erectile Dysfunction 04/10/22 [History Last Taken Unknown] Allergy/AdvReac Type Severity Reaction Status Date / Time No Known Allergies Allergy Verified 04/10/22 11:25 Family History (Updated 04/10/22 @ 20:[address] Fiona Ibarra MD) Father Cancer Mother Diabetes Surgical History (Updated 04/10/22 @ 20:[address] Fiona Ibarra MD) H/O shoulder surgery History of appendectomy History of hip surgery History of surgery on arm Social History (Updated 04/10/22 @ 20:[address] Fiona Ibarra MD) household members: significant other and friend(s) Smoking Status: Former smoker how long ago did patient quit smoking: Reports smoked 1 ppd age [age], will have rare random cigarette still. alcohol intake: current alcohol intake frequency: a few times a month substance use type: marijuana and other details: Reports heavy daily cannabise usage, notes if possible 3 bowls daily. ROS ROS Narrative Admission Review of Systems: CONSTITUTIONAL: No weight loss, + fever, chills, weakness or fatigue. HEENT: + Headache with recent fall. Eyes: No visual loss, blurred vision, double vision or yellow sclerae. Ears, Nose, Throat: No hearing loss, sneezing, congestion, runny nose or sore throat. SKIN: No rash or itching, lesions, wounds. CARDIOVASCULAR: No chest pain, chest pressure or chest discomfort, palpitations, edema, orthopnea, syncopal events. RESPIRATORY: No shortness of breath, cough or sputum, wheezing, hemoptysis. GASTROINTESTINAL: + anorexia, nausea, vomiting, flank pain, No diarrhea, melena, BRBPR. GENITOURINARY: No dysuria, frequency, urgency or retention. NEUROLOGICAL: + headache, No dizziness, syncope, paralysis, ataxia, numbness or tingling in the extremities, focal weakness, change in bowel or bladder control, seizure. MUSCULOSKELETAL: + muscle, back pain, joint pain or stiffness. HEMATOLOGIC: No anemia, bleeding or bruising. LYMPHATICS: No enlarged nodes. No history of splenectomy. PSYCHIATRIC: No history of depression or anxiety. ENDOCRINOLOGIC: No reports of sweating, cold or heat intolerance. No polyuria or polydipsia. ALLERGIES: No history of asthma, hives, eczema or rhinitis. Vital Signs Vital Signs Vital Signs: 04/10/22 11:08 04/10/22 11:29 04/10/22 11:38 Temperature 97.2 F L 98.9 F 98.9 F Temperature Source Temporal Oral Pulse Rate 94 84 Respiratory Rate 17 16 Respiratory Effort Normal Non-Labored Respiratory Depth Normal Respiratory Pattern Normal Blood Pressure 127/90 H 142/94 H Blood Pressure Mean 102 110 Pulse Ox 94 94 94 Oxygen Delivery Method Room Air Room Air Room Air 04/10/22 12:27 04/10/22 13:22 04/10/22 13:22 Temperature 99.0 F 99.6 F H 99.6 F H Temperature Source Oral Oral Oral Pulse Rate 77 71 71 Respiratory Rate 16 20 H 20 H Respiratory Effort Respiratory Depth Respiratory Pattern Blood Pressure 130/87 H 129/83 H 129/83 H Blood Pressure Mean 101 98 98 Pulse Ox 93 93 93 Oxygen Delivery Method Room Air Room Air Room Air 04/10/22 14:10 Temperature 98.8 F Temperature Source Oral Pulse Rate 72 Respiratory Rate 17 Respiratory Effort Respiratory Depth Respiratory Pattern Blood Pressure 121/67 H Blood Pressure Mean 85 Pulse Ox 95 Oxygen Delivery Method Room Air Weight Weight: 214 lb 4.629 oz Body Mass Index (BMI) 29.9 Physical Exam Narrative Physical Examination: General: Awake, alert, oriented x 3 and cooperative but extremely tangential, often takes several tries to get him back to conversation at hand, laying in the ED bed, notes ongoing flank discomfort but no acute distress evident. Skin: Normal color, normal turgor, no icterus, no cyanosis. HEENT: AT/NC, EOMI, PERRLA, moderately dry MM, no carotid bruits or JVD noted. Lungs: Mildly diminished, greater bases, appropriate effort, no rales, ronchi or wheezing. Heart: Currently regular rate and rhythm; no gallop, rub audible. Abdomen: Soft, overweight, bilateral right and left flank discomfort on evaluation, no obvious distention, mildly hyperactive bowel sounds, no obvious HSM. Extremities: No cyanosis, clubbing, or edema. Neurological: Patient awake, alert, oriented as noted, cognitive function intact; pupils equally reactive to light and accommodation, cranial nerves II- XII grossly normal, moving all 4 extremities, no focal deficits, strength mildly to moderately global decrease secondary to acute complaints, recent fall with headache ongoing he reports Psychiatric: Affect appears fatigued otherwise normal, no acute evidence of depressive or anxiety feelings. Results Lab / Micro Data Result Diagrams: 04/10/22 12:20 04/10/22 12:20 Labs: Laboratory Results - last 24 hr 04/10/22 12:20: WBC 13.7 H, RBC 4.25 L, Hgb 13.1, Hct 38.6 L, MCV 90.8, MCH 30.8, MCHC 33.9, RDW Std Deviation 41.1, RDW Coeff of Erik 12.5, Plt Count 231, MPV 9.6, Immature Gran % (Auto) 0.500, Neut % (Auto) 86.3 H, Lymph % (Auto) 4.0 L, [place] % (Auto) 8.7, Eos % (Auto) 0.1, Baso % (Auto) 0.4, Absolute Neuts (auto) 11.8 H, Absolute Lymphs (auto) 0.55 L, Nucleated RBC % 0, Platelet Estimate ADEQUATE, RBC Morphology NORM C+C 04/10/22 12:20: Sodium 133 L, Potassium 4.3, Chloride 100, Carbon Dioxide 28.0, Anion Gap 5, BUN 14, Creatinine 1.48 H, Estim Creat Clear Calc 57.94, Est GFR (MDRD) Af Amer 63, Est GFR (MDRD) Non-Af 52 L, BUN/Creatinine Ratio 9.5 L, Gluc ose 120 H, Calcium 9.0, Total Bilirubin 1.00, AST 15, ALT 29, Alkaline Phosph atase 162 H, Total Protein 7.4, Albumin 3.5, Globulin 3.9, Albumin/Globulin Ratio 0.9 04/10/22 13:15: Urine Color Yellow, Urine Clarity Sl. Cloudy, Urine pH 6.0, Ur S pecific [place] 1.010, Urine Protein 100 H, Urine Glucose (UA) Normal, Urine Ketones Negative, Urine Occult Blood 150 H, Urine Nitrite Positive H, Urine Bilirubin Negative, Urine Urobilinogen Normal, Ur Leukocyte Esterase 500 H, Urine RBC 10-25 SEEN, Urine WBC 25-50 SEEN, Ur Squamous Epith Cells 0 SEEN, Uri ne Bacteria 1+, Urine Mucus 0 SEEN Micro: Microbiology 04/10/22 12:25 Nasal Secretion SARS-CoV-2 Antigen (Rapid) - Final Rhythm Strip Rhythm Strip: Sinus Rhythm Rate: 75 Ectopy: None Radiology Impression Brain CT 04/10/22 12:11 IMPRESSION: Normal unenhanced CT scan of the brain. Electronically Signed: Moreno Lew MD at 13:18 EDT , Chest X-Ray 04/10/22 12:11 IMPRESSION: Hyperinflation. The lungs are clear. Electronically Signed: Moreno Lew MD at 13:25 EDT , Assessment & Plan Assessment/Plan (1) Failure of outpatient treatment: (2) Acute pyelonephritis: PLAN: Plan The patient is a 56 y/o M w/ PMHx: Overweight, Tobacco use, Chronic cannabis usage, Chronic pain syndrome, Rheumatoid arthritis with recent ED evaluation 04/07/22 secondary to hematuria, left sided flank pain, fatigue and malaise at that time diagnosed with pyelonephritis and started on bacrim with discharge to home who now re-presents to the [facility] ED on 04/10/22 with history of minimal improvement despite abx therapy with peristent fevers, nauesa, meesis, decreased appetite, left sided flank and lumbac back discomfort with unfortunately concurrent fall prior to presentation, noted to have tripped and fallen backwards from standing on his porch, hitting his head on the door and eventually landing on the floor with no LOC but ongoing headache since prompting evaluation. He notes hematuria however has resolved. #1. Acute E. Coli Urinary Tract Infection/Pyelonephritis with associated Hematu lilia, Flank pain: Will admit to [facility] given failure of outpatient abx therapy with specific sensitivity patterns noted be resistant to Bactrim of which patient was discharged home on, UA upon ED evaluation remarkable on current presentation, UCx from recent evaluation 04/07/2022 with presumptive E. coli and unfortunately as noted resistant to Bactrim, ampicillin and sensitive to Unasyn however from current review appropriately susceptible to Rocephin which has been administered x1 in the ED, will continue IVFs, monitor I/Os, continue IV Rocephin. Bld cx x 2 obtained in the ED. #2. Acute mild renal insufficiency: Admission BUN/creatinine 14/1.48, baseline appears prior primarily 0.9, likely secondary to recent acute infection as well as potentially medications, will continue judicious hydration, monitor and alter medications as needed. #3. Mechanical Fall without LOC: CT of the head with no acute findings, chest x-ray with no acute cardiopulmonary findings, no prodrome and unfortunately m echanical slip associated. Will maintain on fall precautions to be cautious especially given acute presentation with #1, #2. #4. Occasional Tobacco Use, Heavy Daily Cannabis usage: Encouraged cessation, inpatient consultation per RT, NR if desired, UDS requested. #5. DVT prophylaxis: SCDs, defer chemoprophylaxis given recent hematuria. Charges/Coding Visit Charges Inpatient E&M: 14907 Init Hosp L3
[2022-04-10] MEDS: 0.9% Normal Saline 1,000 ML 150 ML IV (14:43)
[2022-04-10] MEDS: Morphine 4 MG/ML Syringe IV ×2 (14:43→17:52)
--- NOTE | 2022-04-10 15:21 | NURSING ---
MED SURG WHITE NORIS, UTI
[2022-04-10 17:43] LABS: Amphetamine Urine VISTA NEGATIVE (<1000 ng/mL); Barbiturate Urine VISTA NEGATIVE (< 200 ng/mL); Benzodiazepine Urine VISTA NEGATIVE (< 200 ng/mL); Cocaine Urine VISTA NEGATIVE (< 300 ng/mL); Ecstacy Urine VISTA NEGATIVE (< 500 ng/mL); Methadone Urine VISTA NEGATIVE (< 300 ng/mL); PCP Urine VISTA NEGATIVE (< 25 ng/mL); THC Urine VISTA POSITIVE (< 50 ng/mL); Vista UDS pH Range 6
[2022-04-10] MEDS: Acetaminophen 325 MG Tablet 650 MG PO ×2 (17:52→22:37)
[2022-04-10] MEDS: 0.9% Normal Saline 1,000 ML 125 ML IV (17:53)
[2022-04-10] MEDS: cycloBENZAPRine HCl 5 MG TABLET PO (22:37)
[2022-04-10] MEDS: Gabapentin 600 MG Tablet 1200 MG PO (22:38)
[2022-04-10] MEDS: oxyCODONE 5 MG Tablet PO (22:38)
[2022-04-10] MEDS: 0.9% Saline Lock 10 ML Syringe IV (22:38)
[2022-04-10] MEDS: Temazepam 15 MG Capsule PO (22:38)
[2022-04-11] VITALS (7 sets, daily range): BP systolic 111–124; BP diastolic 75–82; PULSE 67–77; RESP 16–18; TEMP 35.8–39.5; O2SAT 94–98
[2022-04-11] MEDS: 0.9% Normal Saline 1,000 ML 125 ML IV ×3 (01:54→18:34)
[2022-04-11 05:35] LABS: Absolute Lymphocyte Count 0.25 X10^3/uL (0.83-4.51); Absolute Neutrophil Count 9.9 X10^3/uL (2.0-7.7); Basophil# 0.02 X10^3/uL; Basophil% 0.2 % (0-1); Eosinophil# 0.07 X10^3/uL; Eosinophils% 0.6 % (0-5); Hematocrit 34.6 % (40-54); Hemoglobin 11.4 g/dL (13.0-16.5); Lymphocyte # 0.25 X10^3/ul (0.83-4.51); Lymphocyte % 2.2 % (19-41); Mean Corp Hgb Conc 32.9 g/dL (32-36); Mean Corpuscular Hgb 30.6 pg (27.0-32.0); Mean Platelet Vol. 8.9 fl (6.2-12.0); Monocyte# 1.02 X10^3/uL; NRBC Flagged by Analyzer 0 % (0-5); Neutrophil # 9.91 X10^3/uL (2.7-7.7); Neutrophil % 87.5 % (47-70); POSITIVE DIFFERENTIAL YES; Platelet Count 160 K/mm3 (150-450); RBC Distribution Width CV 12.8 % (11.6-14.6); RBC Distribution Width SD 43.8 fl (35.1-43.9); Red Blood Count 3.72 M/mm3 (4.6-6.2); White Blood Count 11.3 K/mm3 (4.4-11.0)
[2022-04-11] MEDS: cycloBENZAPRine HCl 5 MG TABLET PO ×3 (05:58→22:06)
[2022-04-11 06:04] LABS: Differential Indicated SCAN CRITERIA MET
[2022-04-11 06:06] LABS: ALB/GLOB Ratio 0.7 RATIO (0.9-2.4); AST(SGOT) 11 U/L (15-37); Alanine Aminotransfer ALT/SGPT 21 U/L (16-61); Albumin, Serum 2.6 g/dL (3.2-5.0); Alkaline Phosphatase 126 U/L (45-117); Anion Gap 2 (5-15); BUN 13 mg/dL (7-18); Calcium,Total 8.1 mg/dL (8.5-10.1); Chloride 106 mmol/L (98-107); Creatinine, Serum 1.44 mg/dL (0.70-1.30); EST Glomerular Filtration Rate 54 mL/min (>60); Est Glom Filt Rate - Afr Amer 65 mL/min (>60); Estimated Creatinine Clearance 59.55 ml/min; Globulin 3.6 g/dL (2.2-4.2); Glucose 140 mg/dL (74-106); Potassium 4.7 mmol/L (3.5-5.1); Protein, Total 6.2 g/dL (6.4-8.2); Sodium Level 136 mmol/L (136-145)
--- NOTE | 2022-04-11 07:34 | PCM.PN.HOSP ---
Subjective Subjective Patient is a 56-year-old M presented with progressive generalized weakness with associated left-sided flank pain and fever. Found to have acute pyelonephritis admitted to regular nursing floor for further management Objective Data Objective Data Vital Signs: Vital Signs Temp Pulse Resp BP Pulse Ox O2 Del Method O2 Flow Rate 99.5 F H 71 18 117/80 96 Nasal Cannula 2 04/11/22 05:54 04/11/22 05:54 04/11/22 05:54 04/11/22 05:54 04/11/22 05:54 04/11/22 05:54 04/11/22 05:54 Oxygen Flow Rate (L/min) 2 Oxygen Delivery Method Nasal Cannula Weight: 97.2 kg Body Mass Index (BMI) 29.9 Intake & Output: Intake and Output for Last 24 Hours 04/09/22 04/10/22 04/11/22 23:59 23:59 23:59 Intake Total 1527.5 / 2292.08 1000.00 / 1000.00 Output Total 700 / 1050 950 / 950 Balance 827.5 / 1242.08 50.00 / 50.00 Lab / Micro Data Result Diagrams: 04/11/22 05:30 04/11/22 05:30 Labs: Laboratory Results - last 24 hr 04/10/22 12:20: WBC 13.7 H, RBC 4.25 L, Hgb 13.1, Hct 38.6 L, MCV 90.8, MCH 30.8, MCHC 33.9, RDW Std Deviation 41.1, RDW Coeff of Erik 12.5, Plt Count 231, MPV 9.6, Immature Gran % (Auto) 0.500, Neut % (Auto) 86.3 H, Lymph % (Auto) 4.0 L, [place] % (Auto) 8.7, Eos % (Auto) 0.1, Baso % (Auto) 0.4, Absolute Neuts (auto) 11.8 H, Absolute Lymphs (auto) 0.55 L, Nucleated RBC % 0, Platelet Estimate ADEQUATE, RBC Morphology NORM C+C 04/10/22 12:20: Sodium 133 L, Potassium 4.3, Chloride 100, Carbon Dioxide 28.0, Anion Gap 5, BUN 14, Creatinine 1.48 H, Estim Creat Clear Calc 57.94, Est GFR (MDRD) Af Amer 63, Est GFR (MDRD) Non-Af 52 L, BUN/Creatinine Ratio 9.5 L, Glucose 120 H, Calcium 9.0, Total Bilirubin 1.00, AST 15, ALT 29, Alkaline Phosphatase 162 H, Total Protein 7.4, Albumin 3.5, Globulin 3.9, Albumin/Globulin Ratio 0.9 04/10/22 13:15: Urine Color Yellow, Urine Clarity Sl. Cloudy, Urine pH 6.0, Ur Specific Gar[place] 1.010, Urine Protein 100 H, Urine Glucose (UA) Normal, Urine Ketones Negative, Urine Occult Blood 150 H, Urine Nitrite Positive H, Urine Bilirubin Negative, Urine Urobilinogen Normal, Ur Leukocyte Esterase 500 H, Urine RBC 10-25 SEEN, Urine WBC 25-50 SEEN, Ur Squamous Epith Cells 0 SEEN, Urine Bacteria 1+, Urine Mucus 0 SEEN 04/10/22 13:15: Urine Opiates Screen NEGATIVE, Urine Methadone Screen NEGATIVE, Ur Barbiturates Screen NEGATIVE, Ur Phencyclidine Scrn NEGATIVE, Ur Amphetamines Screen NEGATIVE, MDMA (Ecstasy) Screen NEGATIVE, U Benzodiazepines Scrn NEGATIVE, Urine Cocaine Screen NEGATIVE, U Cannabinoids Screen POSITIVE H, Ur Drug Screen Comment 04/11/22 05:30: WBC 11.3 H, RBC 3.72 L, Hgb 11.4 L, Hct 34.6 L, MCV 93.0, MCH 30.6, MCHC 32.9, RDW Std Deviation 43.8, RDW Coeff of Erik 12.8, Plt Count 160, MPV 8.9, Immature Gran % (Auto) 0.500, Neut % (Auto) 87.5 H, Lymph % (Auto) 2.2 L, [place] % (Auto) 9.0, Eos % (Auto) 0.6, Baso % (Auto) 0.2, Absolute Neuts (auto) 9.9 H, Absolute Lymphs (auto) 0.25 L, Nucleated RBC % 0 04/11/22 05:30: Sodium 136, Potassium 4.7, Chloride 106, Carbon Dioxide 28.0, Anion Gap 2 L, BUN 13, Creatinine 1.44 H, Estim Creat Clear Calc 59.55, Est GFR (MDRD) Af Amer 65, Est GFR (MDRD) Non-Af 54 L, BUN/Creatinine Ratio 9.0 L, Glucose 140 H, Calcium 8.1 L, Total Bilirubin 0.90, AST 11 L, ALT 21, Alkaline Phosphatase 126 H, Total Protein 6.2 L, Albumin 2.6 L, Globulin 3.6, Albumin/Globulin Ratio 0.7 L Micro: Microbiology 04/10/22 12:20 Blood Culture (Wb) - Anticubital Left Blood Culture - Preliminary 04/10/22 12:50 Blood Culture (Wb) - Right Hand Blood Culture - Preliminary 04/10/22 12:25 Nasal Secretion SARS-CoV-2 Antigen (Rapid) - Final Radiography Diagnostic Testing: Radiology Impression Brain CT 04/10/22 12:11 IMPRESSION: Normal unenhanced CT scan of the brain. Electronically Signed: Moreno Lew MD at 13:18 EDT , Chest X-Ray 04/10/22 12:11 IMPRESSION: Hyperinflation. The lungs are clear. Electronically Signed: Moreno Lew MD at 13:25 EDT , Rhythm Strip Rhythm Strip: Sinus Rhythm Rate: 75 Ectopy: None Physical Exam Narrative GENERAL: cooperative HEENT: Atraumatic; EYES; Anicteric, Normal Conjunctiva NECK; supple, normal thyroid, RESPIRATORY: Diminished to auscultation CARDIOVASCULAR: Regular S1 S2, GI: soft, normoactive bowel sounds, : No Renal angle tenderness; EXTREMITIES: No edema, no clubbing, MUSCULOSKELETAL: no muscle wasting NEURO: Awake; no lateralizing signs. SKIN: No Rash PSYCH; Flat affect Assessment & Plan Assessment/Plan (1) Failure of outpatient treatment: (2) Acute pyelonephritis: PLAN: Plan Patient is a 56-year-old M presented with progressive generalized weakness with associated left-sided flank pain and fever. Found to have acute pyelonephritis admitted to regular nursing floor for further management 1. Acute pyelonephritis secondary to E. coli ? Patient apparently failed outpatient treatment. Admitted to regular nursing floor started on Rocephin in addition to IV fluid resuscitation -Patient is failing outpatient treatment with Bactrim (due to resistance). Placed on Rocephin based on sensitivities. Monitoring response to therapy with symptoms and daily CBC 2. Acute renal insufficiency ? Managed with IV fluid with subsequent monitoring of electrolytes 3. Acute mechanical fall ? Without loss of consciousness CT of the head obtained unremarkable 4. Tobacco dependence - Counseled on cessation, offered nicotine patch for tobacco cravings 5. DVT prophylaxis ? SCDs for now chemoprophylaxis avoided in view of patient experiencing hematuria Charges/Coding Visit Charges Inpatient E&M: 72786 Subs Hosp L2
[2022-04-11] MEDS: Methylphenidate HCl 5 MG Tablet 20 MG PO ×2 (09:12→15:28)
[2022-04-11] MEDS: Gabapentin 600 MG Tablet 1200 MG PO ×2 (09:12→22:05)
[2022-04-11] MEDS: Ceftriaxone 1 GM/50 ML BAG IV (09:22)
--- NOTE | 2022-04-11 11:58 | CASEMGMT ---
STEFFEN GREENWOOD Assessment: Face to Face with pt for initial transition planning/care coordination assessment. STEFFEN GREENWOOD introduced self and role at [facility], pt voices understanding and consents to assessment. Pt is A/O x4 and answers all questions appropriately at this time. Pt is all wrapped in a blanket in bed and changes positions frequently. Care providers, pharmacy, and demographics verified/updated. Admitting Dx: pyelonephritis, failed outpt tx, fall PCP:Lori PaezVOCATIONAL PLACEMENT SPECIALIST Specialists: Pt states he sees an arthritis doctor in [place]. Asks to call sig other for specialists. Sig other confirms Zhang Richter in [place] as the arthritis doctor and for pain mgmt. Preferred Pharmacy: [facility] Insurance: [facility] Prescription Benefit: yes LW/HPOA: Pt states he has a LW and DPOA and his DPOA is Montse Canseco his sig other. He and she (Montse) per tc, are aware that this is not on file at [facility] and he or she may bring in to be scanned into his chart. LNOK: Montse Canseco, corey other Living Arrangements: Pt lives with sig other and her brother in a two story house with 2 steps to enter. Pt reports he is typically I in ADL's but it takes time. Pt expresses concerns with meals. States his parents bring meals sometimes but wishes the prison he lives close to would give him meals. He is interested in speaking with social work regarding meals. Updated SW. Transportation: Pt drives self and denies concerns with transportation. DME/HHC/SNF: Pt has a FWW and cane at home. States he only uses these once in awhile and usually in the fall. States the weather causes pain to his body. Pt denies hx of HHC or SNF stays. Pt states no concerns with going home at time of dc. Pt states he fell in 1990 50 feet off of a roof on concretes steps which is why he has pain. Discussed pt fall at home and if he would be interested in having therapy at home. Discussed options for this. Pt denies. States he had 3-4 rum and cokes and two red solo cups of wilkes coladas that same day. Pt states he does drink but would not state a daily amount. Pt denies smoking cigarettes, admits to using marijuana. Pt denies any other street drugs or illegal drugs. Pt states no further concerns/needs. CM to follow. Advised pt to ask CM if any further question/concerns/needs arise, voices understanding. Pt Goal: Home Plan: Home TC to pt sig other. Confirmed physicians, discussed that the LW/DPOA is not on file at [facility] and may be brought in. She has no concerns with patient returning home post hospitalization.
--- NOTE | 2022-04-11 14:46 | CASEMGMT ---
Social Work SW received referral for mental health and pt concerns regarding food insecurity. SW awoke pt from nap and pt is agreeable to speak with clinical social work aide. Pt presents with flight of ideas, speaking rapidly and changing subjects quickly. Pt is able to answers questions that SW asks but quickly moves on to other topics. Pt had an accident 20+ years ago in which he reports he had a 50 ft fall, pt perseverates on this. SW inquired about mental health. Pt is unable to state any mental health diagnosis's but does state he was previously on [place], was pink slipped about 7 years ago and sees a psychiatrist every three months. Pt states she sees [facility]. Pt denies current psych meds and is concerned SW is going to pink slip pt. Pt reassured pt that a pink slip is not the intention of this SW visit. Pt denies any suicidal thoughts/intentions at this time. SW offered to make an appointment with psychiatrist and pt denies. SW inquired if pt has a counselor and pt denies and denies need for one. SW spoke with pt regarding food insecurity. Pt states his parents just dropped off a lot of food. Pt states has gone to a advent in [place] in the past for meals. SW provided pt with [facility] and pointed out to pt that a list of served meals is listed on this resource. Pt seems appreciative of this information. SW also provided written information on Meals on Wheels and Mom's wheels. Pt is familiar with this and pt was instructed he can contact either for home delivered meals. SW discussed housing and pt states he recently had his hot water heater fixed and confirms he has electricity, running water, heating and no concerns with home environment. SW spoke with pt regarding drug and alcohol use. Pt denies drug use other than marijuana. Pt states he uses is for pain management/self medication. Pt states he does drink alcohol but denies habitual use. [facility] call to [facility] and pt does not have case management. The only services he receives are visits with Claire Aguero NP. Pt does have a followup appointment with her on June 12. SW spoke with pt about the case management program at the counseling center and provided written information. Pt denies further need from SW at this time other than food resources. SW will remain available if further needs arise. KYLE Borrero
[2022-04-11] MEDS: oxyCODONE 5 MG Tablet PO ×2 (15:28→22:06)
[2022-04-11] MEDS: Acetaminophen 325 MG Tablet 650 MG PO ×2 (16:17→22:05)
[2022-04-11] MEDS: Morphine 4 MG/ML Syringe IV (16:20)
[2022-04-11] MEDS: Temazepam 15 MG Capsule PO (22:05)
[2022-04-12] MEDS: 0.9% Normal Saline 1,000 ML 125 ML IV ×3 (01:14→20:03)
[2022-04-12] MEDS: oxyCODONE 5 MG Tablet PO ×3 (05:12→21:23)
[2022-04-12] MEDS: cycloBENZAPRine HCl 5 MG TABLET PO ×2 (05:12→21:24)
[2022-04-12] MEDS: Acetaminophen 325 MG Tablet 650 MG PO ×3 (05:13→21:23)
[2022-04-12 05:18] VITALS: BP 155/91; PULSE 57; RESP 18; TEMP 37.2; O2SAT 96
[2022-04-12 07:20] VITALS: O2SAT 92
--- NOTE | 2022-04-12 07:47 | PCM.PN.HOSP ---
Subjective Subjective Temperature maximum over the past 24 hours 103.1. Urine and blood cultures so far positive for E. coli final sensitivities pending. Objective Data Objective Data Vital Signs: Vital Signs Temp Pulse Resp BP Pulse Ox O2 Del Method O2 Flow Rate 98.9 F 57 L 18 155/91 H 96 Nasal Cannula 2 04/12/22 05:18 04/12/22 05:18 04/12/22 05:18 04/12/22 05:18 04/12/22 05:18 04/12/22 05:18 04/12/22 05:18 Oxygen Flow Rate (L/min) 2 Oxygen Delivery Method Nasal Cannula Weight: 99.609 kg Body Mass Index (BMI) 29.9 Intake & Output: Intake and Output for Last 24 Hours 04/10/22 04/11/22 04/12/22 23:59 23:59 23:59 Intake Total 1527.5 / 2292.08 4069.17 / 4069.17 1753.33 / 1753.33 Output Total 700 / 1050 3850 / 3850 400 / 400 Balance 827.5 / 1242.08 219.17 / 219.17 1353.33 / 1353.33 Lab / Micro Data Result Diagrams: 04/11/22 05:30 04/11/22 05:30 Micro: Microbiology 04/10/22 12:20 Blood Culture (Wb) - Anticubital Left Blood Culture - Final Presumptive E. coli 04/10/22 12:50 Blood Culture (Wb) - Right Hand Blood Culture - Final Escherichia coli 04/10/22 12:25 Nasal Secretion SARS-CoV-2 Antigen (Rapid) - Final Rhythm Strip Rhythm Strip: Sinus Rhythm Rate: 75 Ectopy: None Physical Exam Narrative GENERAL: cooperative HEENT: Atraumatic; EYES; Anicteric, Normal Conjunctiva NECK; supple, normal thyroid, RESPIRATORY: Diminished to auscultation CARDIOVASCULAR: Regular S1 S2, GI: soft, normoactive bowel sounds, : No Renal angle tenderness; EXTREMITIES: No edema, no clubbing, MUSCULOSKELETAL: no muscle wasting NEURO: Awake; no lateralizing signs. SKIN: No Rash PSYCH; Flat affect Assessment & Plan Assessment/Plan (1) Failure of outpatient treatment: (2) Acute pyelonephritis: PLAN: Plan Patient is a 56-year-old M presented with progressive generalized weakness with associated left-sided flank pain and fever. Found to have acute pyelonephritis admitted to regular nursing floor for further management 1. Acute pyelonephritis secondary to E. coli ? Patient apparently failed outpatient treatment. Admitted to regular nursing floor started on Rocephin in addition to IV fluid resuscitation -Patient is failing outpatient treatment with Bactrim (due to resistance). Placed on Rocephin based on sensitivities. Monitoring response to therapy with symptoms and daily CBC -04/12/2022; temperature maximum over the past 24 hours 103.1. Urine and blood cultures so far positive for E. coli final sensitivities pending. 2. Acute renal insufficiency ? Managed with IV fluid with subsequent monitoring of electrolytes 3. Acute mechanical fall ? Without loss of consciousness CT of the head obtained unremarkable 4. Tobacco dependence - Counseled on cessation, offered nicotine patch for tobacco cravings 5. DVT prophylaxis ? SCDs for now chemoprophylaxis avoided in view of patient experiencing hematuria Charges/Coding Visit Charges Inpatient E&M: 32172 Subs Hosp L2
[2022-04-12 09:02] VITALS: BP 122/87; PULSE 66; RESP 18; TEMP 37.1; O2SAT 98
[2022-04-12] MEDS: Ceftriaxone 1 GM/50 ML BAG IV (09:07)
[2022-04-12] MEDS: Methylphenidate HCl 5 MG Tablet 20 MG PO ×2 (09:07→16:00)
[2022-04-12] MEDS: Gabapentin 600 MG Tablet 1200 MG PO ×2 (09:07→21:22)
[2022-04-12 13:30] VITALS: TEMP 37.3
[2022-04-12 15:59] VITALS: BP 145/90; PULSE 75; RESP 16; TEMP 36.7; O2SAT 97
[2022-04-12] MEDS: Mag Hydrox/Al Hydrox/Simeth 30 ML UDC PO (19:36)
[2022-04-12] MEDS: Senna/Docusate Sodium 1 Tablet 2 TABLET PO (20:07)
[2022-04-12 20:10] VITALS: BP 140/89; PULSE 64; RESP 16; TEMP 37.2; O2SAT 96
[2022-04-12] MEDS: Temazepam 15 MG Capsule PO (21:22)
[2022-04-12] MEDS: Ondansetron 4 MG/2 ML Vial IV (21:29)
[2022-04-12] MEDS: 0.9% Saline Lock 10 ML Syringe IV (21:29)
[2022-04-13] MEDS: 0.9% Normal Saline 1,000 ML 125 ML IV (03:34)
[2022-04-13 03:46] VITALS: BP 146/95; PULSE 84; RESP 16; TEMP 36.9; O2SAT 94
[2022-04-13] MEDS: Acetaminophen 325 MG Tablet 650 MG PO (06:09)
[2022-04-13] MEDS: oxyCODONE 5 MG Tablet PO (06:09)
[2022-04-13] MEDS: Senna/Docusate Sodium 1 Tablet 2 TABLET PO (06:09)
[2022-04-13] MEDS: cycloBENZAPRine HCl 5 MG TABLET PO (06:09)
--- NOTE | 2022-04-13 07:44 | PCM.PN.HOSP ---
Subjective Subjective Continues to improve clinically he will be assessed for possible discharge Objective Data Objective Data Vital Signs: Vital Signs Temp Pulse Resp BP Pulse Ox O2 Del Method O2 Flow Rate 98.5 F 84 16 146/95 H 94 Room Air 2 04/13/22 03:46 04/13/22 03:46 04/13/22 03:46 04/13/22 03:46 04/13/22 03:46 04/13/22 03:46 04/12/22 09:02 Oxygen Flow Rate (L/min) 2 Oxygen Delivery Method Room Air Weight: 100.108 kg Body Mass Index (BMI) 29.9 Intake & Output: Intake and Output for Last 24 Hours 04/11/22 04/12/22 04/13/22 23:59 23:59 23:59 Intake Total 4069.17 / 4069.17 4623.33 / 4623.33 1739.58 / 1739.58 Output Total 3850 / 3850 1750 / 1750 1300 / 1300 Balance 219.17 / 219.17 2873.33 / 2873.33 439.58 / 439.58 Lab / Micro Data Result Diagrams: 04/11/22 05:30 04/11/22 05:30 Micro: Microbiology 04/10/22 12:20 Blood Culture (Wb) - Anticubital Left Blood Culture - Final Presumptive E. coli 04/10/22 12:50 Blood Culture (Wb) - Right Hand Blood Culture - Final Escherichia coli 04/10/22 12:25 Nasal Secretion SARS-CoV-2 Antigen (Rapid) - Final Rhythm Strip Rhythm Strip: Sinus Rhythm Rate: 75 Ectopy: None Physical Exam Narrative GENERAL: cooperative HEENT: Atraumatic; EYES; Anicteric, Normal Conjunctiva NECK; supple, normal thyroid, RESPIRATORY: Diminished to auscultation CARDIOVASCULAR: Regular S1 S2, GI: soft, normoactive bowel sounds, : No Renal angle tenderness; EXTREMITIES: No edema, no clubbing, MUSCULOSKELETAL: no muscle wasting NEURO: Awake; no lateralizing signs. SKIN: No Rash PSYCH; Flat affect Assessment & Plan Assessment/Plan (1) Failure of outpatient treatment: (2) Acute pyelonephritis: PLAN: Plan Patient is a 56-year-old M presented with progressive generalized weakness with associated left-sided flank pain and fever. Found to have acute pyelonephritis admitted to regular nursing floor for further management 1. Acute pyelonephritis secondary to E. coli ? Patient apparently failed outpatient treatment. Admitted to regular nursing floor started on Rocephin in addition to IV fluid resuscitation -Patient is failing outpatient treatment with Bactrim (due to resistance). Placed on Rocephin based on sensitivities. Monitoring response to therapy with symptoms and daily CBC -04/12/2022; temperature maximum over the past 24 hours 103.1. Urine and blood cultures so far positive for E. coli final sensitivities pending. -04/13/2022 final sensitivities reviewed patient currently on appropriate antibiotic therapy 2. Acute renal insufficiency ? Managed with IV fluid with subsequent monitoring of electrolytes 3. Acute mechanical fall ? Without loss of consciousness CT of the head obtained unremarkable 4. Tobacco dependence - Counseled on cessation, offered nicotine patch for tobacco cravings 5. DVT prophylaxis ? SCDs for now chemoprophylaxis avoided in view of patient experiencing hematuria Charges/Coding Visit Charges Inpatient E&M: 53500 Subs Hosp L2
[2022-04-13 07:50] VITALS: O2SAT 94
[2022-04-13] MEDS: Methylphenidate HCl 5 MG Tablet 20 MG PO (08:41)
[2022-04-13] MEDS: 0.9% Saline Lock 10 ML Syringe IV (08:42)
[2022-04-13 08:45] VITALS: BP 142/88; PULSE 73; RESP 18; TEMP 36.6; O2SAT 96
[2022-04-13] MEDS: Gabapentin 600 MG Tablet 1200 MG PO (09:00)
[2022-04-13] MEDS: Ceftriaxone 1 GM/50 ML BAG IV (09:01)
--- NOTE | 2022-04-13 10:54 | PCM.DC.SUM ---
Providers Date of Admission: 04/10/22 Date of Discharge: 04/13/22 Primary Care Physician: JAIME MartinC Reason For Visit: PYELONEPHRITIS, FAILED OUTPATIENT TX, FALL Diagnosis Discharge Diagnosis (1) Failure of outpatient treatment: Status: Acute Code(s): Z78.9 - Other specified health status (2) Acute pyelonephritis: Status: Acute Code(s): N10 - Acute pyelonephritis Medications at Discharge Home Medications cyclobenzaprine 5 mg tablet 1 ea PO TID back 09/28/20 gabapentin 600 mg tablet 1,200 mg PO BID back 09/28/20 methylphenidate HCl 20 mg tablet 20 mg PO BID adhd 09/28/20 ergocalciferol (vitamin D2) 1,250 mcg (50,000 unit) capsule 50,000 unit PO QWEEK supplement 04/10/22 sildenafil 50 mg tablet 50 mg PO DAILY PRN Erectile Dysfunction 04/10/22 cefdinir 300 mg capsule 300 mg PO BID #20 caps 04/13/22 Hospital Course Summary of Care Provided Minutes Spent on Discharge: 35 Hospital Course: Patient is a 56-year-old M presented with progressive generalized weakness with associated left-sided flank pain and fever. Found to have acute pyelonephritis admitted to regular nursing floor for further management 1. Acute pyelonephritis secondary to E. coli ? Patient apparently failed outpatient treatment. Admitted to regular nursing floor started on Rocephin in addition to IV fluid resuscitation -Patient is failing outpatient treatment with Bactrim (due to resistance). Placed on Rocephin based on sensitivities. Monitoring response to therapy with symptoms and daily CBC -04/12/2022; temperature maximum over the past 24 hours 103.1. Urine and blood cultures so far positive for E. coli final sensitivities pending. -04/13/2022 final sensitivities reviewed patient currently on appropriate antibiotic therapy; Dc/d on cefdinir for 10 days 2. Acute renal insufficiency ? Managed with IV fluid with subsequent monitoring of electrolytes 3. Acute mechanical fall ? Without loss of consciousness CT of the head obtained unremarkable 4. Tobacco dependence - Counseled on cessation, offered nicotine patch for tobacco cravings 5. DVT prophylaxis ? SCDs for now chemoprophylaxis avoided in view of patient experiencing hematuria Physical Exam Narrative GENERAL: cooperative HEENT: Atraumatic; EYES; Anicteric, Normal Conjunctiva NECK; supple, normal thyroid, RESPIRATORY: Diminished to auscultation CARDIOVASCULAR: Regular S1 S2, GI: soft, normoactive bowel sounds, : No Renal angle tenderness; EXTREMITIES: No edema, no clubbing, MUSCULOSKELETAL: no muscle wasting NEURO: Awake; no lateralizing signs. SKIN: No Rash PSYCH; Flat affect Weight / BMI Weight Weight: 100.108 kg Body Mass Index (BMI) 29.9 ABG / Lab / Microbiology Data Result Diagrams: 04/11/22 05:30 04/11/22 05:30 Microbiology: Microbiology 04/10/22 12:20 Blood Culture (Wb) - Anticubital Left Blood Culture - Final Presumptive E. coli 04/10/22 12:50 Blood Culture (Wb) - Right Hand Blood Culture - Final Escherichia coli 04/10/22 12:25 Nasal Secretion SARS-CoV-2 Antigen (Rapid) - Final D/C Instructions Discharge Diet: No restrictions Discharge Activity: Return to Normal Activity Call your doctor if you observe: Fever of 101 or Higher, Shortness of breath, Fainting spells and Chest pain Meaningful Use Info Meaningful Use Diagnoses (Choose all that apply): None applicable Discharge Plan Admission Admit Date/Time: 04/10/22 14:47 Attending Provider: Monty Lemons Primary Care Provider: Lori Paez Consulting Providers: Fiona Ibarra Discharge Orders/Prescriptions Prescriptions: New cefdinir 300 mg capsule 300 mg PO BID Qty: 20 0RF Continued gabapentin 600 mg tablet 1,200 mg PO BID Label Comments: TAKE 1 TABLET BY MOUTH THREE TIMES DAILY cyclobenzaprine 5 mg tablet 1 ea PO TID Label Comments: TAKE 1 TO 2 TABLETS BY MOUTH EVERY 8 HOURS NEEDED for muscle relaxation. methylphenidate HCl 20 mg tablet 20 mg PO BID Label Comments: TAKE 1 TABLET BY MOUTH TWICE DAILY sildenafil 50 mg tablet 50 mg PO DAILY PRN (Reason: Erectile Dysfunction) Label Comments: TAKE 1 TABLET BY MOUTH 30 MINUTES to FOUR HOURS before sexual activity (maximum daily dose - 100mg) ergocalciferol (vitamin D2) 1,250 mcg (50,000 unit) capsule 50,000 unit PO QWEEK Label Comments: TAKE 1 CAPSULE BY MOUTH TWICE A WEEK Rx Instructions: take twice a week Referrals / Follow Up: Lori Paez, JAIMEC [Primary Care Provider] - Within 1 Week Disposition Disposition (needs filled in before D/C Order can be placed): Home, Self Care Charges/Coding Visit Charges Inpatient E&M: 33318 Disch Hosp
[2022-04-13 12:44] VITALS: BP 147/89; PULSE 77; RESP 18; TEMP 36.7; O2SAT 97
== END 2022-04-13 12:49 | disposition home or self-care (01) | DRG 690 ==
LOC: ED 15:01 → MS3 15:15
PROVIDERS: Admitting Provider Family Medicine; Emergency Provider Emergency Medicine; PCP Nurse Practitioner Family; Visit Provider Internal Medicine
DX: N10 Acute pyelonephritis (principal); Z16.29 Resistance to other single specified antibiotic; S09.90XA Unspecified injury of head, initial encounter; J44.9 Chronic obstructive pulmonary disease, unspecified; M06.9 Rheumatoid arthritis, unspecified; F17.210 Nicotine dependence, cigarettes, uncomplicated; I45.10 Unspecified right bundle-branch block; F12.90 Cannabis use, unspecified, uncomplicated; W01.198A Fall on same level from slipping, tripping and stumbling with subsequent striking against other object, initial encounter; B96.20 Unspecified Escherichia coli [E. coli] as the cause of diseases classified elsewhere; E66.3 Overweight; G89.4 Chronic pain syndrome; F90.9 Attention-deficit hyperactivity disorder, unspecified type; Z68.29 Body mass index [BMI] 29.0-29.9, adult
CPT/HCPCS: 36415; 70450; 71046; 80053; 80307; 81001; 85025; 87040; 87077; 87186; 87811; 93005; 99285; J7030; A4216; J2405

== ENCOUNTER → 2022-09-19 | Outpatient (CLI) | payer MEDICARE, SELFPAY ==
[2022-09-19 18:26] LABS: Erythrocyte Sedimentation Rate 13 mm/hr (0-20)
[2022-09-19 19:01] LABS: CRP < 2.90 mg/L (0.0-3.0); Uric Acid 7.8 mg/dL (3.5-7.2)
[2022-09-19 20:44] LABS: Hepatitis B Surface Antibody Non-Reactive; Hepatitis B Surface Antigen Non-Reactive (Nonreactive); Hepatitis C Antibody Non-Reactive (Nonreactive)
[2022-09-22 18:07] LABS: QNTFERON TB Mitogen Value > 10.00 IU/mL (.); QNTFERON TB Nil Value 0.01 IU/mL (.); QNTFERON TB1+ Ag Value 0.01 IU/mL (.); QNTFERON TB2+ Ag Value 0.01 IU/mL (.); Red Blood Cell Count Test/G6PD 4.77 x10E6/uL (4.14-5.80)
[2022-09-22 20:27] LABS: G6PD Quant Test 227 (127-427); Hepatitis B Core Ab Total Negative (Negative); QNTIFERON TB Positive Criteria Negative (Negative)
== END | disposition home or self-care (01) ==
LOC: MTLAB 14:29
PROVIDERS: PCP Nurse Practitioner Family; Referring Provider Internal Medicine Rheumatology; Visit Provider Internal Medicine Rheumatology
DX: M19.90 Unspecified osteoarthritis, unspecified site (principal); M54.50 Low back pain, unspecified
CPT/HCPCS: 36415; 82955; 84550; 85652; 86140; 86480; 86704; 86706; 86803; 87340

== ENCOUNTER → 2023-02-12 | Outpatient (CLI) | payer MEDICARE, SELFPAY ==
[2023-02-12 19:02] LABS: Erythrocyte Sedimentation Rate 5 mm/hr (0-20)
[2023-02-12 19:05] LABS: CPK Total, Creatine Kinase 199 U/L (39-308); CRP < 2.90 mg/L (0.0-3.0)
== END | disposition home or self-care (01) ==
PROVIDERS: PCP Nurse Practitioner Family; Referring Provider Internal Medicine Rheumatology; Visit Provider Internal Medicine Rheumatology
DX: M10.9 Gout, unspecified (principal)
CPT/HCPCS: 36415; 82550; 85652; 86140

== ENCOUNTER 2023-07-16 13:18 | Outpatient (CLI) | payer MEDICARE, SELFPAY ==
[2023-07-16 15:47] LABS: Erythrocyte Sedimentation Rate 12 mm/hr (0-20)
[2023-07-16 15:49] LABS: Uric Acid 4.8 mg/dL (3.5-7.2)
== END 2023-07-16 23:59 | disposition home or self-care (01) ==
LOC: MTLAB 13:19
PROVIDERS: PCP Nurse Practitioner Family; Referring Provider Internal Medicine Rheumatology; Visit Provider Internal Medicine Rheumatology
DX: E79.0 Hyperuricemia without signs of inflammatory arthritis and tophaceous disease (principal)
CPT/HCPCS: 36415; 84550; 85652; 86140

== ENCOUNTER → 2024-02-19 | Outpatient (CLI) | payer MEDICARE, SELFPAY ==
--- NOTE | 2024-02-19 15:36 | RAD_ITS ---
EXAM: XR BILATERAL HIPS WITH PELVIS WHEN PERFORMED, 2 VIEWS CLINICAL INDICATION: PAIN TECHNIQUE: Frontal view of the bilateral hips with pelvis when performed. COMPARISON: No relevant prior studies available. FINDINGS: BONES/JOINTS: There is hardware across an old left hip fracture. No destructive or sclerotic lesions. Note that overlapping bowel shadows may however obscure fine detail. Sacroiliac joint is unremarkable. No widening of the pubic symphysis. SOFT TISSUES: Unremarkable. No soft tissue swelling or gas. RAD/Hips B/L min 2 views w/ Pelvis IMPRESSION: Hardware across an old left hip fracture. There are no acute osseous abnormalities. Electronically Signed: Salomón Pizano MD at 23:38 EDT ,
[2024-02-19 17:52] LABS: Absolute Lymphocyte Count 0.58 X10^3/uL (0.83-4.51); Absolute Neutrophil Count 6.3 X10^3/uL (2.0-7.7); Basophil# 0.03 X10^3/uL; Basophil% 0.4 % (0-1); Eosinophil# 0.02 X10^3/uL; Eosinophils% 0.3 % (0-5); Hematocrit 39.2 % (40-54); Hemoglobin 13.3 g/dL (13.0-16.5); Lymphocyte # 0.58 X10^3/ul (0.83-4.51); Lymphocyte % 8.1 % (19-41); Mean Corp Hgb Conc 33.9 g/dL (32-36); Mean Corpuscular Hgb 30.9 pg (27.0-32.0); Mean Platelet Vol. 9.9 fl (6.2-12.0); Monocyte# 0.22 X10^3/uL; Monocyte% 3.1 % (0-10); NRBC Flagged by Analyzer 0 % (0-5); POSITIVE DIFFERENTIAL YES; Platelet Count 239 K/mm3 (150-450); RBC Distribution Width CV 12.5 % (11.6-14.6); RBC Distribution Width SD 41.3 fl (35.1-43.9); Red Blood Count 4.31 M/mm3 (4.6-6.2); White Blood Count 7.2 K/mm3 (4.4-11.0)
[2024-02-19 18:04] LABS: Differential Indicated SCAN CRITERIA MET
[2024-02-19 18:10] LABS: Anion Gap 4 (5-15); BUN 18 mg/dL (7-18); BUN/Creat Ratio 16.7 RATIO (10-20); CRP < 2.90 mg/L (0.0-3.0); Calcium,Total 8.9 mg/dL (8.5-10.1); Chloride 105 mmol/L (98-107); Creatinine, Serum 1.08 mg/dL (0.70-1.30); EST Glomerular Filtration Rate 74 mL/min (>60); Est Glom Filt Rate - Afr Amer 90 mL/min (>60); Glucose 128 mg/dL (74-106); Magnesium 2.2 mg/dL (1.6-2.6); Potassium 4.3 mmol/L (3.5-5.1); Sodium Level 136 mmol/L (136-145); Uric Acid 5.6 mg/dL (3.5-7.2)
[2024-02-19 18:34] LABS: Platelet Estimate ADEQUATE (ADEQ)
[2024-02-19 18:35] LABS: Anisocytosis RARE; Macrocytosis RARE; Red Cell Morphology N CHROM NORMAL (NORM C&C)
[2024-02-23 08:13] LABS: Growth Hormone 0.5 ng/mL (0.0-10.0)
== END | disposition home or self-care (01) ==
PROVIDERS: PCP Nurse Practitioner Family; Referring Provider Internal Medicine Rheumatology; Visit Provider Internal Medicine Rheumatology
DX: E22.0 Acromegaly and pituitary gigantism (principal); M10.042 Idiopathic gout, left hand; M62.838 Other muscle spasm
CPT/HCPCS: 36415; 73521; 80048; 83003; 83735; 84550; 85025; 86140

== ENCOUNTER → 2024-12-16 | Outpatient (CLI) | payer MEDICARE, SELFPAY ==
[2024-12-16 15:52] LABS: Absolute Lymphocyte Count 0.78 X10^3/uL (0.83-4.51); Absolute Neutrophil Count 4.3 X10^3/uL (2.0-7.7); Basophil# 0.05 X10^3/uL; Basophil% 0.9 % (0-1); Eosinophil# 0.19 X10^3/uL; Eosinophils% 3.3 % (0-5); Hematocrit 41.3 % (40-54); Hemoglobin 14.2 g/dL (13.0-16.5); Lymphocyte # 0.78 X10^3/ul (0.83-4.51); Lymphocyte % 13.4 % (19-41); Mean Corp Hgb Conc 34.4 g/dL (32-36); Mean Corpuscular Hgb 30.8 pg (27.0-32.0); Mean Corpuscular Volume 89.6 fL (80-94); Mean Platelet Vol. 9.5 fl (6.2-12.0); Monocyte# 0.46 X10^3/uL; Monocyte% 7.9 % (0-10); NRBC Flagged by Analyzer 0 % (0-5); Neutrophil # 4.32 X10^3/uL (2.7-7.7); Neutrophil % 74.2 % (47-70); Platelet Count 269 K/mm3 (150-450); RBC Distribution Width SD 42.1 fl (35.1-43.9); Red Blood Count 4.61 M/mm3 (4.6-6.2); White Blood Count 5.8 K/mm3 (4.4-11.0)
[2024-12-16 16:04] LABS: Color, Urine Yellow (Yellow); Glucose, Dipstick Normal (Normal); Ketone-Dipstick Negative (Negative); Leukocyte Esterase-Dipstick Negative /ul (Negative); Nitrite-Dipstick Negative (Negative); Occult Blood-Urine Negative /ul (Negative); Protein-Dipstick 15 mg/dl (Negative); Specific Gravity, Urine 1.005 (1.002-1.030); Urine Bilirubin Dipstick Negative (Negative); Urine Clarity Clear (Clear); Urine Urobilinogen Normal (Normal)
[2024-12-16 16:28] LABS: Microalbumin,Random Urine < 12.0 mg/L (NO RANGE EST.); Microalbumin:Creatinine Ratio UNABLE TO CALCULATE mg/g CRE
[2024-12-16 16:49] LABS: ALB/GLOB Ratio 1.4 RATIO (0.9-2.4); AST(SGOT) 28 U/L (<=37); Alanine Aminotransfer ALT/SGPT 25 U/L (<=46); Albumin, Serum 4.3 g/dL (3.4-4.8); Alkaline Phosphatase 85 U/L (40-129); Anion Gap 10 (5-15); BUN 11 mg/dL (4-19); BUN/Creat Ratio 10.2 RATIO (10-20); Calcium,Total 9.6 mg/dL (7.6-11.0); Carbon Dioxide 26.5 mmol/L (21.0-32.0); Chloride 100 mmol/L (98-108); Cholesterol 176 mg/dL (<=200); Creatinine, Serum 1.08 mg/dL (0.70-1.20); EST Glomerular Filtration Rate 79 (>60); Glucose 105 mg/dL (70-99); High Density Lipoprotein 45 mg/dL; Low Density Lipoprotein Calc. 107 mg/dL; Potassium 4.3 mmol/L (3.3-5.1); Protein, Total 7.3 g/dL (5.9-8.4); Sodium Level 137 mmol/L (133-145); Total Bilirubin 0.96 mg/dL (0.00-1.30); Triglycerides 120 mg/dL; Uric Acid 5.9 mg/dL (3.5-7.2); Very Low Density Lipoprotein 24 mg/dL (5-40); Vitamin B12 362 pg/mL (180-914); cholesterol:hdl ratio screen 3.89
== END | disposition home or self-care (01) ==
LOC: MTLAB 11:37
PROVIDERS: PCP Nurse Practitioner Family; Referring Provider Nurse Practitioner Family; Visit Provider Nurse Practitioner Family
DX: M10.9 Gout, unspecified (principal); D64.9 Anemia, unspecified; I10 Essential (primary) hypertension; R79.89 Other specified abnormal findings of blood chemistry; R74.8 Abnormal levels of other serum enzymes; E55.9 Vitamin D deficiency, unspecified
CPT/HCPCS: 36415; 80053; 80061; 81002; 82043; 82570; 82607; 82652; 84443; 84550; 85025; 86140

== ENCOUNTER → 2025-05-19 | Outpatient (CLI) | payer MEDICARE, SELFPAY ==
[2025-05-19 18:30] LABS: CRP < 3.00 mg/L (0.0-3.0); Uric Acid 5.8 mg/dL (3.5-7.2)
== END | disposition home or self-care (01) ==
LOC: MTLAB 13:38
PROVIDERS: PCP Nurse Practitioner Family; Referring Provider Internal Medicine Rheumatology; Visit Provider Internal Medicine Rheumatology
DX: M10.042 Idiopathic gout, left hand (principal)
CPT/HCPCS: 36415; 84550; 86140

== ENCOUNTER → 2025-07-17 | Outpatient (CLI) | payer MEDICARE, SELFPAY | END | disposition home or self-care (01) | LOC: MRI 15:39 | PROVIDERS: PCP Nurse Practitioner Family; Referring Provider Student in an Organized Health Care Education/Training Program; Visit Provider Student in an Organized Health Care Education/Training Program | DX: M54.12 Radiculopathy, cervical region (principal); M50.30 Other cervical disc degeneration, unspecified cervical region ==